=== PATIENT | female | born 1950 | race Caucasian/White ===

== ENCOUNTER 2016-06-11 13:27 | Emergency (ER) | payer MEDICARE, OTHER ==
[2016-06-11 13:33] VITALS: RESP 18
--- NOTE | 2016-06-11 13:59 | ED ---
Fall HPI - General Chief Complaint: Fall Stated Complaint: Fall Time Seen by Provider: 06/11/16 13:39 Source: patient Mode of arrival: ambulatory - History of Present Illness Initial Comments: Patient is a 66-year-old female with history of COPD, diabetes, hypertension, Coumadin use, bilateral knee replacement presenting after mechanical fall yesterday. Patient states she tripped and fell on a rug falling to her left wrist and left knee. She denies head injury or loss of consciousness. Patient is coming in today as she has swelling to the left knee and left wrist. Patient has Percocet at home for her pain which she doesn't request anything for pain. Patient denies any headache, dizziness, lightheadedness, chest pain, stress breath, nausea, vomiting, diarrhea, dysuria. - Related Data Home Medications Medication Instructions Recorded Confirmed Albuterol Inhaler [Ventolin Hfa 2 puff INHALATION QID PRN 08/21/13 01/25/16 Inhaler] Budesonide/Formoterol Fumarate 2 puff INHALATION RT-BID 08/21/13 01/25/16 [Symbicort 160-4.5 Mcg Inhaler] Levothyroxine Sodium [Synthroid] 75 mcg PO DAILY 08/21/13 01/25/16 Losartan Potassium [Cozaar] 100 mg PO DAILY 08/21/13 01/25/16 Methocarbamol [Robaxin-750] 1,500 mg PO QID PRN 08/21/13 01/25/16 Montelukast [Singulair] 10 mg PO HS 08/21/13 01/25/16 Simvastatin [Zocor] 40 mg PO HS 08/21/13 01/25/16 hydrOXYzine PAMOATE [Vistaril] 50 mg PO 5XD PRN 08/21/13 01/25/16 lamoTRIgine [LaMICtal] 100 mg PO HS 08/21/13 01/25/16 oxyCODONE-APAP 10-325MG [Percocet 1 tab PO 5XD PRN 08/21/13 01/25/16 10-325 mg] Akne-Mycin 2% Topical Ointment 1 applic TOPICAL BID 01/25/16 01/25/16 Atenolol [Tenormin] 25 mg PO DAILY 01/25/16 01/25/16 Celecoxib [CeleBREX] 200 mg PO DAILY 01/25/16 01/25/16 Citalopram Hydrobromide 40 mg PO DAILY 01/25/16 01/25/16 Eszopiclone [Lunesta] 3 mg PO HS 01/25/16 01/25/16 Fluticasone Propionate [Flonase 2 spray EA NOSTRIL DAILY 01/25/16 01/25/16 Allergy Relief] Insulin Lispro [humaLOG Kwikpen] See Protocol SQ AC-TID 01/25/16 01/25/16 LORazepam [Ativan] 0.5 mg PO BID PRN 01/25/16 01/25/16 Magnesium Oxide [Mag-Ox] 400 mg PO DAILY 01/25/16 01/25/16 [place]-3 Acid Ethyl Esters [Lovaza] 4 gm PO DAILY 01/25/16 01/25/16 Warfarin [Coumadin] 5 mg PO SUSA 01/25/16 01/25/16 Warfarin [Coumadin] 7.5 mg PO MOTUWETHFR 01/25/16 01/25/16 Previous Rx's Medication Instructions Recorded Azithromycin [Zithromax] 500 mg PO DAILY #10 tab 01/29/16 Doxycycline Hyclate [Vibramycin] 100 mg PO BID #20 cap 01/29/16 Mupirocin 2% Oint [Bactroban 2% 1 applic TOPICAL BID #1 tub 01/29/16 Oint] Nitrofurantoin Monohyd/M-Cryst 100 mg PO DAILY #0 01/29/16 [Macrobid] Allergies Allergy/AdvReac Type Severity Reaction Status Date / Time hydrocodone Allergy Itching Verified 06/11/16 13:33 levofloxacin [From Levaquin] Allergy Dyspnea Verified 06/11/16 13:33 lisinopril Allergy Cough Verified 06/11/16 13:33 morphine Allergy Itching Verified 06/11/16 13:33 sulfamethoxazole Allergy Unknown Verified 06/11/16 13:33 [From Bactrim] trimethoprim [From Bactrim] Allergy Unknown Verified 06/11/16 13:33 acetaminophen [From Tylenol] AdvReac Itching Verified 06/11/16 13:33 lactose AdvReac Nausea & Verified 06/11/16 13:33 Vomiting & Diarrhea Review of Systems ROS Statement: Those systems with pertinent positive or pertinent negative responses have been documented in the HPI. Constitutional: No fever and no chills. HENT: No congestion, no rhinorrhea and no sore throat. Eyes: No discharge and no redness. Respiratory: No cough and no shortness of breath. Cardiovascular: No chest pain and no palpitations. Gastrointestinal: No nausea, no vomiting, no abdominal pain and no diarrhea. Genitourinary: No dysuria and no hematuria. Musculoskeletal: No back pain, + swelling and +arthralgias Skin: No pallor and no rash. Neurological: No dizziness and No headaches. ROS Other: All systems not noted in ROS Statement are negative. Past Medical History Past Medical History: COPD, Diabetes Mellitus, Hypertension Additional Past Medical History / Comment(s): Sarcoidosis, back pain History of Any Multi-Drug Resistant Organisms: MRSA Date of last positivie culture/infection: 01/25/16 MDRO Source:: left hand culture Past Surgical History: Adenoidectomy, Cholecystectomy, Hysterectomy, Joint Replacement, Orthopedic Surgery, Tonsillectomy Additional Past Surgical History / Comment(s): cervical laminectomy, bladder suspension, laser eye surgery Past Anesthesia/Blood Transfusion Reactions: Motion Sickness Additional Past Anesthesia/Blood Transfusion Reaction / Comment(s): CLAUSTERPHOBIA Past Psychological History: Bipolar, Depression Additional Psychological History / Comment(s): SPOUSE IN APRIL 2015. PT LIVES ALONE HAD 3 CATS. PT DENIES ANY DEPRESSION CURRENTLY FEELS WELL MAINTAINED ON HER MEDS. NO THOUGHTS OF HARMING SELF-NO HOPELESSNESS. Smoking Status: Never smoker Past Alcohol Use History: None Reported Additional Past Alcohol Use History / Comment(s): She is a lifelong nonsmoker. She denies any medical marijuana, marijuana, street drug or alcohol use. She lives at home independently. She has a cat in the home. She denies any service or recent travel. Past Drug Use History: None Reported - Past Family History Father Additional Family Medical History / Comment(s): ALCOHOLIC AT AGE 87 Mother Family Medical History: Coronary Artery Disease (CAD) Additional Family Medical History / Comment(s): TRIPLE CABG General Exam - General Exam Comments Initial Comments: Constitutional: Patient appears well-developed and well-nourished. No distress. Head: Normocephalic and atraumatic. Eyes: Conjunctivae and EOM are normal. Right eye exhibits no discharge. Left eye exhibits no discharge. No scleral icterus. Neck: Normal range of motion. Neck supple. Cardiovascular: Normal rate and regular rhythm. No murmur heard. Pulmonary/Chest: Effort normal and breath sounds normal. No respiratory distress. No wheezes. Abdominal: Soft. No distension. There is no tenderness. There is no rebound and no guarding. Right shoulder: Nontender, no crepitus, no deformity Left shoulder: Nontender, no crepitus, no deformity Right arm: Nontender, no crepitus, no deformity Left arm: Nontender, no crepitus, no deformity Right hand: Nontender, no crepitus, no deformity, no snuffbox tenderness Left hand: Bruising and tenderness to left distal forearm, no crepitus, no deformity, no snuffbox tenderness Chest: Nontender, no crepitus, no deformity Pelvis: Stable, nontender, no crepitus, no deformity Back: Nontender, no crepitus, no deformity, no step-offs Right leg: Nontender, no crepitus, no deformity, anterior midline scar present Left leg: Diffuse left knee tenderness with swelling and bruising, no crepitus, midline anterior scar present; DP and TP pulses present. Sensation and motor intact. Distal sensation and pulses are present in all 4 extremities. Neurological: Patient alert and oriented to person, place, and time. Skin: Skin is warm and dry. Not diaphoretic. Nursing notes and vitals reviewed. Limitations: no limitations Course Vital Signs 06/11/16 13:30 Temperature 98.2 F Pulse Rate 72 Respiratory 18 Rate Blood Pressure 144/69 O2 Sat by Pulse 97 Oximetry - Reevaluation(s) Reevaluation #1: 06/11/16 15:04 Patient resting currently in bed. Patient relieved that her hardware is intact. Not requesting anything for pain. Medical Decision Making - Medical Decision Making Patient is a 66-year-old female on Coumadin presenting after mechanical fall without head injury or loss of consciousness. Patient has swelling to the left knee and left wrist. X-rays are unremarkable. INR is therapeutic at 2.6. Not requesting anything for pain. Patient has pain medications at home. Prior to discharge, patient was resting comfortably in bed. Course of stay improved. Denies pain. Discussed physical exam and diagnostic tests with patient. Questions answered and patient is agreeable to discharge with close follow up with Primary Care Physician. Instructed to return to Emergency Department if symptoms worsen. - Lab Data Lab Results 06/11/16 Range/Units 13:10 PT 25.4 H (9.0-12.0) sec INR 2.6 (<1.1) Disposition Clinical Impression: Fall, Knee pain, Wrist pain Disposition: HOME SELF-CARE Condition: Good Instructions: Fall Prevention for Older Adults (ED), Hemarthrosis (ED), Wrist Injury (ED), Swollen Knee Joint (ED) Referrals: Mejia Early MD [Primary Care Provider] - 1-2 days
[2016-06-11 14:24] LABS: INR 2.6 (<1.1); Prothrombin Time 25.4 sec (9.0-12.0)
--- NOTE | 2016-06-11 14:42 | XR ---
Left knee HISTORY: Trauma and pain 3 views of the left knee No comparisons Patient is status post left knee arthroplasty. Bone mineralization is mildly reduced. Alignment is ma intained. 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 Difficult to exclude a joint effusion. IMPRESSION: Soft tissue swelling. No acute osseous abnormality. Additional findings above.
--- NOTE | 2016-06-11 14:43 | XR ---
Left wrist HISTORY: Trauma and pain Correlation to left hand third of January 2016 Resorption or postop change suspected of the trapezium as noted on prior exam. Bone mineralization is reduced. No acute fracture or dislocation is evident. Arthropathy changes are noted. IMPRESSION: No acute fracture or dislocation is evident, bone mineralization is reduced.
[2016-06-11 15:26] VITALS: BP 150/79; PULSE 65; TEMP 98.1
== END 2016-06-11 15:27 | disposition home or self-care (01) ==
LOC: EC 13:27
DX: M25.562 Pain in left knee (principal); M25.532 Pain in left wrist; W01.0XXA Fall on same level from slipping, tripping and stumbling without subsequent striking against object, initial encounter; F32.9 Major depressive disorder, single episode, unspecified; J44.9 Chronic obstructive pulmonary disease, unspecified; I10 Essential (primary) hypertension; E11.9 Type 2 diabetes mellitus without complications; D86.9 Sarcoidosis, unspecified; Z79.899 Other long term (current) drug therapy; Z79.51 Long term (current) use of inhaled steroids; Z79.4 Long term (current) use of insulin; Z79.01 Long term (current) use of anticoagulants; Z88.1 Allergy status to other antibiotic agents; Z88.5 Allergy status to narcotic agent; Z88.2 Allergy status to sulfonamides; Z88.8 Allergy status to other drugs, medicaments and biological substances; Z86.14 Personal history of Methicillin resistant Staphylococcus aureus infection; Z96.653 Presence of artificial knee joint, bilateral
CPT/HCPCS: 36415; 85610; 99284

== ENCOUNTER → 2016-06-21 | Outpatient (CLI) | payer MEDICARE, OTHER ==
--- NOTE | 2016-06-21 12:44 | US ---
EXAMINATION TYPE: US venous doppler duplex LE LT DATE OF EXAM: 06/21/2016 12:31 PM COMPARISON: NONE CLINICAL HISTORY: M79.89 Edema left lower extremity. Pain and swelling with h/o DVT, on thinners SIDE PERFORMED: Left Grayscale, color Doppler, spectral Doppler imaging performed of the deep veins of the left lower extr emity. The left common femoral, superficial femoral, popliteal veins all compress normally and show n o abnormal luminal echoes. Venous waveforms are within normal limits. Left Leg: Appears negative for DVT, tech results relayed to Elizabeth at office @1232 IMPRESSION: No evident deep venous thrombosis within the deep veins of the left lower extremity as d escribed
== END ==
LOC: RADUSWWP 12:08
PROVIDERS: ATTEND Family Medicine
DX: M79.89 Other specified soft tissue disorders (principal)

== ENCOUNTER → 2016-06-22 | Outpatient (CLI) | payer MEDICARE, OTHER ==
--- NOTE | 2016-06-22 16:32 | BD ---
EXAMINATION TYPE: MG DEXA axial skeleton. DATE OF EXAM: 06/22/2016 10:36 AM COMPARISON: NONE CLINICAL HISTORY: 66-year-old female osteopenia Height: 63 Weight: 216.7 FRAX RISK QUESTIONS: Alcohol (3 or more units per day): no Family History (Parent hip fracture): no Glucocorticoids (More than 3mos): no (Ex: prednisone, prednisolone, methylprednisolone, dexamethasone, and hydrocortisone). History of Fracture in Adulthood: yes Secondary Osteoporosis: 1. Type 1 Diabetes: no 2. Hyperthyroidism: no 3. Menopause before 45: yes 4. Malnutrition: no 5. Chronic liver disease: no Rheumatoid Arthritis: no Current Tobacco Use: no RISK FACTORS HISTORY OF: Hip Fracture (Right/Left): no Spine Fracture: no History of Wrist Fracture: no Surgery to Spine/Hip(right/left)/Wrist (right/left): c-spine Family History of Osteoporosis: yes Active: no Diet low in dairy products/other sources of calcium: no Postmenopausal woman: yes -hysterectomy age 26 Lost more than 2 inches in height since high school: yes Frequent falls: no Adrenal Insufficiency: no MEDICATIONS: Thyroid Medications: synthroid How Lon-20 years Additional History: pt takes many medications EXAM MEASUREMENTS: Bone mineral densitometry was performed using the Digital H2O System. Bone mineral density as measured about the Lumbar spine is: ----- L1-L4(G/cm2): 1.303 T Score Values are as follows: ----- L2: 0.9 ----- L3: 1.5 ----- L4: 0.9 ----- L1-L4: 1.0 Bone mineral density baseline Bone mineral density about the R hip (g/cm2): 0.756 Bone mineral density about the L hip (g/cm2): 0.825 T Score values are as follows: -----R Neck: -2.0 -----L Neck: -1.5 -----R Intertrochanter: -0.5 -----L Intertrochanter: -0.1 Bone mineral density baseline IMPRESSION: Osteopenia as indicated by T score values in both hips. There is slightly increased risk for fracture and therapy can be considered. Rescreen in 2-5 years. NOTE: T-SCORE=SD OF THE YOUNG ADULT MEAN.
== END | disposition home or self-care (01) ==
LOC: RADBDWWP 10:01
PROVIDERS: ATTEND Family Medicine
DX: M85.852 Other specified disorders of bone density and structure, left thigh (principal); M85.851 Other specified disorders of bone density and structure, right thigh
CPT/HCPCS: 77080

== ENCOUNTER 2016-07-26 15:17 | Emergency (ER) | payer MEDICARE, OTHER ==
[2016-07-26 15:27] VITALS: BP 151/83; PULSE 67; RESP 18; TEMP 98
--- NOTE | 2016-07-26 15:28 | ED ---
ENT HPI - General Stated complaint: Ear Pain Time Seen by Provider: 07/26/16 15:22 Source: patient, RN notes reviewed Mode of arrival: ambulatory Limitations: no limitations - History of Present Illness Initial comments: 66-year-old female presents emergency Department chief complaint right ear pain. Patient states she has on-and-off ear problems ever since she has had This year. Patient states 6 weeks ago she had a rupture of her right TM. Patient states that over the last 24 hours she's had increased pain again. Patient has fever or chills no drainage. Patient has a pain around her ear. Patient has a headache or dizziness. Patient states she has ALLERGY to Levaquin. Patient denies any symptoms at this time. - Related Data Home Medications Medication Instructions Recorded Confirmed Albuterol Inhaler [Ventolin Hfa 2 puff INHALATION QID PRN 08/21/13 01/25/16 Inhaler] Budesonide/Formoterol Fumarate 2 puff INHALATION RT-BID 08/21/13 01/25/16 [Symbicort 160-4.5 Mcg Inhaler] Levothyroxine Sodium [Synthroid] 75 mcg PO DAILY 08/21/13 01/25/16 Losartan Potassium [Cozaar] 100 mg PO DAILY 08/21/13 01/25/16 Methocarbamol [Robaxin-750] 1,500 mg PO QID PRN 08/21/13 01/25/16 Montelukast [Singulair] 10 mg PO HS 08/21/13 01/25/16 Simvastatin [Zocor] 40 mg PO HS 08/21/13 01/25/16 hydrOXYzine PAMOATE [Vistaril] 50 mg PO 5XD PRN 08/21/13 01/25/16 lamoTRIgine [LaMICtal] 100 mg PO HS 08/21/13 01/25/16 oxyCODONE-APAP 10-325MG [Percocet 1 tab PO 5XD PRN 08/21/13 01/25/16 10-325 mg] Akne-Mycin 2% Topical Ointment 1 applic TOPICAL BID 01/25/16 01/25/16 Atenolol [Tenormin] 25 mg PO DAILY 01/25/16 01/25/16 Celecoxib [CeleBREX] 200 mg PO DAILY 01/25/16 01/25/16 Citalopram Hydrobromide 40 mg PO DAILY 01/25/16 01/25/16 Eszopiclone [Lunesta] 3 mg PO HS 01/25/16 01/25/16 Fluticasone Propionate [Flonase 2 spray EA NOSTRIL DAILY 01/25/16 01/25/16 Allergy Relief] Insulin Lispro [humaLOG Kwikpen] See Protocol SQ AC-TID 01/25/16 01/25/16 LORazepam [Ativan] 0.5 mg PO BID PRN 01/25/16 01/25/16 Magnesium Oxide [Mag-Ox] 400 mg PO DAILY 01/25/16 01/25/16 [place]-3 Acid Ethyl Esters [Lovaza] 4 gm PO DAILY 01/25/16 01/25/16 Warfarin [Coumadin] 5 mg PO SUSA 01/25/16 01/25/16 Warfarin [Coumadin] 7.5 mg PO MOTUWETHFR 01/25/16 01/25/16 Previous Rx's Medication Instructions Recorded Azithromycin [Zithromax] 500 mg PO DAILY #10 tab 01/29/16 Doxycycline Hyclate [Vibramycin] 100 mg PO BID #20 cap 01/29/16 Mupirocin 2% Oint [Bactroban 2% 1 applic TOPICAL BID #1 tub 01/29/16 Oint] Nitrofurantoin Monohyd/M-Cryst 100 mg PO DAILY #0 01/29/16 [Macrobid] Amoxicillin/Potassium Clav 1 tab PO Q12HR #20 tab 07/26/16 [Augmentin 875-125 Tablet] Allergies Allergy/AdvReac Type Severity Reaction Status Date / Time hydrocodone Allergy Itching Verified 07/26/16 15:28 levofloxacin [From Levaquin] Allergy Dyspnea Verified 07/26/16 15:28 lisinopril Allergy Cough Verified 07/26/16 15:28 morphine Allergy Itching Verified 07/26/16 15:28 sulfamethoxazole Allergy Unknown Verified 07/26/16 15:28 [From Bactrim] trimethoprim [From Bactrim] Allergy Unknown Verified 07/26/16 15:28 acetaminophen [From Tylenol] AdvReac Itching Verified 07/26/16 15:28 lactose AdvReac Nausea & Verified 07/26/16 15:28 Vomiting & Diarrhea Review of Systems ROS Statement: Those systems with pertinent positive or pertinent negative responses have been documented in the HPI. ROS Other: All systems not noted in ROS Statement are negative. Past Medical History Past Medical History: COPD, Diabetes Mellitus, Hypertension Additional Past Medical History / Comment(s): Sarcoidosis, back pain History of Any Multi-Drug Resistant Organisms: MRSA Date of last positivie culture/infection: 01/25/16 MDRO Source:: left hand culture Past Surgical History: Adenoidectomy, Cholecystectomy, Hysterectomy, Joint Replacement, Orthopedic Surgery, Tonsillectomy Additional Past Surgical History / Comment(s): cervical laminectomy, bladder suspension, laser eye surgery Past Anesthesia/Blood Transfusion Reactions: Motion Sickness Additional Past Anesthesia/Blood Transfusion Reaction / Comment(s): CLAUSTERPHOBIA Past Psychological History: Bipolar, Depression Additional Psychological History / Comment(s): SPOUSE IN APRIL 2015. PT LIVES ALONE HAD 3 CATS. PT DENIES ANY DEPRESSION CURRENTLY FEELS WELL MAINTAINED ON HER MEDS. NO THOUGHTS OF HARMING SELF-NO HOPELESSNESS. Smoking Status: Never smoker Past Alcohol Use History: None Reported Additional Past Alcohol Use History / Comment(s): She is a lifelong nonsmoker. She denies any medical marijuana, marijuana, street drug or alcohol use. She lives at home independently. She has a cat in the home. She denies any service or recent travel. Past Drug Use History: None Reported - Past Family History Father Additional Family Medical History / Comment(s): ALCOHOLIC AT AGE 87 Mother Family Medical History: Coronary Artery Disease (CAD) Additional Family Medical History / Comment(s): TRIPLE CABG General Exam General appearance: alert, in no apparent distress Head exam: Present: atraumatic, normocephalic, normal inspection Eye exam: Present: normal appearance, PERRL, EOMI. Absent: scleral icterus, conjunctival injection, periorbital swelling ENT exam: Present: normal oropharynx, mucous membranes moist, normal external ear exam (No drainage), other (No mastoid tenderness). Absent: TM's normal bilaterally (Right TM erythematous) Neck exam: Present: normal inspection, full ROM. Absent: tenderness, meningismus, lymphadenopathy Respiratory exam: Present: normal lung sounds bilaterally. Absent: respiratory distress, wheezes, rales, rhonchi, stridor Cardiovascular Exam: Present: regular rate, normal rhythm, normal heart sounds. Absent: systolic murmur, diastolic murmur, rubs, gallop, clicks Course Vital Signs 07/26/16 15:25 Temperature 98.0 F Pulse Rate 67 Respiratory 18 Rate Blood Pressure 151/83 O2 Sat by Pulse 96 Oximetry Medical Decision Making - Medical Decision Making 66-year-old female presented for right ear pain. Patient has otitis media. Patient placed on Augmentin. Patient has no mastoid tenderness. Patient has no purulent drainage from the canal. Patient will follow-up with primary care physician. Disposition Clinical Impression: Otitis media Disposition: HOME SELF-CARE Condition: Stable Instructions: Otitis Media (ED) Additional Instructions: Please return to the Emergency Department if symptoms worsen or any other concerns. Prescriptions: Amoxicillin/Potassium Clav [Augmentin 875-125 Tablet] 1 tab PO Q12HR #20 tab Referrals: Mejia Early MD [Primary Care Provider] - 1-2 days Time of Disposition: 15:28
== END 2016-07-26 15:40 | disposition home or self-care (01) ==
LOC: EC 15:17
DX: H66.91 Otitis media, unspecified, right ear (principal); J44.9 Chronic obstructive pulmonary disease, unspecified; I10 Essential (primary) hypertension; D86.9 Sarcoidosis, unspecified; F32.9 Major depressive disorder, single episode, unspecified; Z79.01 Long term (current) use of anticoagulants; E11.9 Type 2 diabetes mellitus without complications; Z86.14 Personal history of Methicillin resistant Staphylococcus aureus infection; Z79.51 Long term (current) use of inhaled steroids; Z79.4 Long term (current) use of insulin; Z88.1 Allergy status to other antibiotic agents; Z88.8 Allergy status to other drugs, medicaments and biological substances; Z88.5 Allergy status to narcotic agent; Z88.2 Allergy status to sulfonamides
CPT/HCPCS: 99282

== ENCOUNTER 2016-12-31 13:57 | Emergency (ER) | payer MEDICARE, OTHER ==
[2016-12-31 14:00] VITALS: BP 134/74; PULSE 90; RESP 20; TEMP 98.4
[2016-12-31] MEDS ORDERED: HYDROmorphone 1 MG/ML 1 ML SYRINGE IM STA ×2 (14:26→15:24)
--- NOTE | 2016-12-31 14:33 | ED ---
General Adult HPI - General Chief complaint: Back Pain/Injury Stated complaint: Back Pain Time Seen by Provider: 12/31/16 14:09 Source: patient, RN notes reviewed Mode of arrival: wheelchair Limitations: no limitations - History of Present Illness Initial comments: Chief complaint history of present illness a 66-year-old female with a complaint of discomfort radiates from the left lumbar to the right lumbar and down the right leg. She has a history of sciatica in the past. She reports she 's had steroid shots in the past as well told that her disks have been deteriorating for years. Patient reports that she was playing with her granddaughter may have strained it several days ago. No difficulty urinating or bowel movements. - Related Data Home Medications Medication Instructions Recorded Confirmed Albuterol Inhaler [Ventolin Hfa 2 puff INHALATION RT-QID PRN 08/21/13 12/31/16 Inhaler] Budesonide/Formoterol Fumarate 2 puff INHALATION RT-BID 08/21/13 12/31/16 [Symbicort 160-4.5 Mcg Inhaler] Levothyroxine Sodium [Synthroid] 75 mcg PO DAILY 08/21/13 12/31/16 Losartan Potassium [Cozaar] 100 mg PO DAILY 08/21/13 12/31/16 Methocarbamol [Robaxin-750] 1,500 mg PO QID PRN 08/21/13 12/31/16 Montelukast [Singulair] 10 mg PO HS 08/21/13 12/31/16 Simvastatin [Zocor] 40 mg PO HS 08/21/13 12/31/16 hydrOXYzine PAMOATE [Vistaril] 50 mg PO 5XD PRN 08/21/13 12/31/16 lamoTRIgine [LaMICtal] 100 mg PO QAM 08/21/13 12/31/16 Atenolol [Tenormin] 25 mg PO DAILY 01/25/16 12/31/16 Celecoxib [CeleBREX] 200 mg PO DAILY 01/25/16 12/31/16 Citalopram Hydrobromide 40 mg PO DAILY 01/25/16 12/31/16 [Citalopram HBr] Fluticasone Propionate [Flonase 2 spray EA NOSTRIL DAILY PRN 01/25/16 12/31/16 Allergy Relief] Insulin Lispro [humaLOG Kwikpen] See Protocol SQ AC-TID 01/25/16 12/31/16 Magnesium Oxide [Mag-Ox] 400 mg PO DAILY 01/25/16 12/31/16 [place]-3 Acid Ethyl Esters [Lovaza] 4 gm PO DAILY 01/25/16 12/31/16 Warfarin [Coumadin] 5 mg PO SUFRSA 01/25/16 12/31/16 Warfarin [Coumadin] 7.5 mg PO MOTUWETH 01/25/16 12/31/16 oxyCODONE-APAP 7.5-325MG [Percocet 1 tab PO 5XD PRN 12/31/16 12/31/16 7.5-325 mg] Previous Rx's Medication Instructions Recorded Diazepam [Valium] 5 mg PO BID #6 tab 12/31/16 methylPREDNISolone Dose Pack 4 mg PO DIRECTED #21 package 12/31/16 [Medrol Dose Pack] Allergies Allergy/AdvReac Type Severity Reaction Status Date / Time acetaminophen [From Tylenol] Allergy Itching Verified 12/31/16 14:44 hydrocodone Allergy Itching Verified 12/31/16 14:44 levofloxacin [From Levaquin] Allergy Dyspnea Verified 12/31/16 14:37 morphine Allergy Itching Verified 12/31/16 14:37 sulfamethoxazole Allergy Dyspnea Verified 12/31/16 14:37 [From Bactrim] trimethoprim [From Bactrim] Allergy Dyspnea Verified 12/31/16 14:37 lactose AdvReac Nausea & Verified 12/31/16 14:37 Vomiting & Diarrhea lisinopril AdvReac Cough Verified 12/31/16 14:37 Review of Systems ROS Statement: Those systems with pertinent positive or pertinent negative responses have been documented in the HPI. Review of systems. No visual acuity changes no headache no chest pain no shortness of breath no nausea no vomiting. No difficulty having bowel movements or urinating. Pain radiates down the right sciatic region and some paresthesias to the right anterior thigh. All systems reviewed. Patient does not have foot drop. Past medical problems significant for COPD, nonsmoker. Patient takes insulin on occasion depending upon her Accu-Cheks at meals. History of hypertension, sarcoidosis and chronic back pain. The patient's surgeries include adenoidectomy, tonsillectomy, cholecystectomy, hysterectomy, bilateral knee replacements, and cervical laminectomy. The patient's family history no cancers. Patient has ALLERGIES to hydrocodone and Tylenol but yet she can take Percocet she takes it with Vistaril. She reports an ALLERGY to Levaquin lisinopril morphine which causes nausea vomiting but she can take Dilaudid. She reports that she can't take sulfa drugs also lactose intolerant. Patient's nonsmoker. ROS Other: All systems not noted in ROS Statement are negative. Past Medical History Past Medical History: COPD, Diabetes Mellitus, Hypertension Additional Past Medical History / Comment(s): Sarcoidosis, back pain History of Any Multi-Drug Resistant Organisms: MRSA Date of last positivie culture/infection: 01/25/16 MDRO Source:: left hand culture Past Surgical History: Adenoidectomy, Cholecystectomy, Hysterectomy, Joint Replacement, Orthopedic Surgery, Tonsillectomy Additional Past Surgical History / Comment(s): cervical laminectomy, bladder suspension, laser eye surgery Past Anesthesia/Blood Transfusion Reactions: Motion Sickness Additional Past Anesthesia/Blood Transfusion Reaction / Comment(s): CLAUSTERPHOBIA Past Psychological History: Bipolar, Depression Smoking Status: Never smoker Past Alcohol Use History: None Reported Past Drug Use History: None Reported - Past Family History Father Additional Family Medical History / Comment(s): ALCOHOLIC AT AGE 87 Mother Family Medical History: Coronary Artery Disease (CAD) Additional Family Medical History / Comment(s): TRIPLE CABG General Exam - General Exam Comments Initial Comments: General: The patient is awake and alert, complaining of pain from the right paralumbar region down the right buttock into the right leg to just approximate the right knee. No foot drop. Vital signs are temperature 98.4 pulse 90 respiratory rate 20 pulse ox 90% room air blood pressure 134/64 Eye: Pupils are equal, round and reactive to light, extra-ocular movements are intact ; there is normal conjunctiva bilaterally. No signs of icterus. Ears, nose, mouth and throat: There are moist mucous membranes and no oral lesions. Neck: The neck is supple, there is no tenderness, history of chronic neck pain but nothing at this time. Cardiovascular: There is a regular rate and rhythm. Systolic murmur. Patient states she is aware of this.. Respiratory: Lungs are clear to auscultation, respirations are non-labored, breath sounds are equal. No wheezes, stridor, rales, or rhonchi. Gastrointestinal: Soft, non-distended, non-tender abdomen without masses or organomegaly noted. There is no rebound or guarding present. No CVA tenderness. Bowel sounds are unremarkable. Back: Right paralumbar pain that radiates down the buttock on the right side into the right thigh. No foot drop. Sciatica. Neurovascular status to the feet intact. Musculoskeletal: Normal ROM, no tenderness, There is no pedal edema. There is no calf tenderness or swelling. Numbness to the anterior right thigh region. Pulses equal bilaterally. Neurological: Sciatica right leg to right anterior thigh. Skin: Skin is warm and dry and no rashes or lesions are noted. Limitations: no limitations Course Vital Signs 12/31/16 13:58 Temperature 98.4 F Pulse Rate 90 Respiratory 20 Rate Blood Pressure 134/74 O2 Sat by Pulse 98 Oximetry Medical Decision Making - Medical Decision Making Medical decision-making. The patient had x-rays of the lumbosacral spine were done and reviewed by radiologist; his impression is level scoliosis Center L3. Multilevel spondylosis is present. Surgical clips are present on the right upper quadrant. Bone mineralization is reduced. No evidence of spondylolysis or spondylolisthesis. Loss of disc height present at the intervertebral levels. Atherosclerotic vascular calcifications present within the aorta. Sclerosis is present in the posterior elements of the lumbar spine. Impression degenerative disc disease, scoliosis, osteopenia and facet arthropathy. As read by Dr. Irvin The patient received one half milligram of Dilaudid IM. She states that she can take this but she cannot take morphine. The plan the patient will be advised to continue with her home pain medications which are Percocet. She will also be put on a muscle relaxant for 2 days, 95 mg twice a day and a Medrol Dosepak. She was advised to keep her sugars controlled and as needed increase her insulin on a sliding scale which she understands. Advised follow- up with her family physician and orthopedic surgeon. Patient and I discussed the possible need for an MRI for evaluation disc disease . Disposition Clinical Impression: Right-sided low back pain with sciatica, Degenerative disc disease, lumbar Disposition: HOME SELF-CARE Condition: Fair Instructions: Acute Low Back Pain (ED), Sciatica (ED), Lumbar Radiculopathy (ED ) Additional Instructions: Follow-up with the family physician. Follow-up with year pain management doctor he does not have one as for referral as needed. Follow-up with the orthopedic surgeon. Valium 5 mg twice a day for 2 days. Continue with here pain medication. Also Medrol Dosepak as directed. Control your sugar by using her sliding scale. Prescriptions: Diazepam [Valium] 5 mg PO BID #6 tab methylPREDNISolone Dose Pack [Medrol Dose Pack] 4 mg PO DIRECTED #21 package Referrals: Mejia Early MD [Primary Care Provider] - 1-2 days Time of Disposition: 15:20
--- NOTE | 2016-12-31 15:04 | XR ---
Lumbosacral spine HISTORY: Right-sided pain, low back pain 5 views of the lumbosacral spine are submitted. No comparisons There is a levoscoliosis centered at L3. Multilevel spondylosis is present. Surgical clips are presen t in the right upper quadrant. Bone mineralization is reduced. No evident spondylolysis or spondyloli sthesis. Loss of disc height present at the intervertebral levels. Atherosclerotic vascular calcifica tions present within the aorta. Sclerosis is present in the posterior elements of the lumbar spine. IMPRESSION: Degenerative disc disease, scoliosis, osteopenia and facet arthropathy.
== END 2016-12-31 15:34 | disposition home or self-care (01) ==
LOC: EC 13:57
DX: M51.16 Intervertebral disc disorders with radiculopathy, lumbar region (principal); J44.9 Chronic obstructive pulmonary disease, unspecified; E11.9 Type 2 diabetes mellitus without complications; I10 Essential (primary) hypertension; F31.9 Bipolar disorder, unspecified; Z88.1 Allergy status to other antibiotic agents; Z88.2 Allergy status to sulfonamides; Z88.5 Allergy status to narcotic agent; Z88.8 Allergy status to other drugs, medicaments and biological substances; Z91.011 Allergy to milk products; Z79.01 Long term (current) use of anticoagulants; Z79.4 Long term (current) use of insulin; Z79.51 Long term (current) use of inhaled steroids; Z79.899 Other long term (current) drug therapy
CPT/HCPCS: 99283; 96372 ×2; 72110; J1170

== ENCOUNTER 2017-01-22 10:45 | Emergency (ER) | payer MEDICARE, OTHER ==
[2017-01-22] MEDS ORDERED: HYDROmorphone 1 MG/ML 1 ML SYRINGE IM STA (12:43)
--- NOTE | 2017-01-22 12:47 | ED ---
General Adult HPI - General Chief complaint: Back Pain/Injury Stated complaint: BACK PAIN Time Seen by Provider: 01/22/17 12:33 Source: patient, RN notes reviewed, old records reviewed Mode of arrival: wheelchair Limitations: no limitations - History of Present Illness Initial comments: Chief complaint history of present illness a 66-year-old female with chronic low back pain. Patient reports again worse lately. Patient is requesting a pain shot. She is currently taking Percocet states she has not run out of her prescription. She does have an appointment to follow-up with Dr. Caballero, neurologist. Denies any new injuries slip and twist turning or lifting. - Related Data Home Medications Medication Instructions Recorded Confirmed Budesonide/Formoterol Fumarate 2 puff INHALATION RT-BID 08/21/13 01/22/17 [Symbicort 160-4.5 Mcg Inhaler] Levothyroxine Sodium [Synthroid] 75 mcg PO DAILY 08/21/13 01/22/17 Losartan Potassium [Cozaar] 100 mg PO DAILY 08/21/13 01/22/17 Montelukast [Singulair] 10 mg PO HS 08/21/13 01/22/17 Simvastatin [Zocor] 40 mg PO HS 08/21/13 01/22/17 hydrOXYzine PAMOATE [Vistaril] 50 mg PO 5XD PRN 08/21/13 01/22/17 lamoTRIgine [LaMICtal] 100 mg PO QAM 08/21/13 01/22/17 Atenolol [Tenormin] 25 mg PO DAILY 01/25/16 01/22/17 Celecoxib [CeleBREX] 200 mg PO DAILY 01/25/16 01/22/17 Citalopram Hydrobromide 40 mg PO DAILY 01/25/16 01/22/17 [Citalopram HBr] Fluticasone Propionate [Flonase 2 spray EA NOSTRIL DAILY PRN 01/25/16 01/22/17 Allergy Relief] Insulin Lispro [humaLOG Kwikpen] See Protocol SQ AC-TID 01/25/16 01/22/17 Magnesium Oxide [Mag-Ox] 400 mg PO DAILY 01/25/16 01/22/17 [place]-3 Acid Ethyl Esters [Lovaza] 4 gm PO DAILY 01/25/16 01/22/17 Warfarin [Coumadin] 5 mg PO SUFRSA 01/25/16 01/22/17 Warfarin [Coumadin] 7.5 mg PO MOTUWETH 01/25/16 01/22/17 oxyCODONE-APAP 7.5-325MG [Percocet 1 tab PO 5XD PRN 12/31/16 01/22/17 7.5-325 mg] Albuterol Sulfate [Proair Hfa] 2 puff INHALATION RT-QID PRN 01/22/17 01/22/17 Baclofen 10 mg PO TID 01/22/17 01/22/17 Allergies Allergy/AdvReac Type Severity Reaction Status Date / Time acetaminophen [From Tylenol] Allergy Itching Verified 01/22/17 12:16 hydrocodone Allergy Itching Verified 01/22/17 12:16 levofloxacin [From Levaquin] Allergy Dyspnea Verified 01/22/17 12:16 morphine Allergy Itching Verified 01/22/17 12:16 sulfamethoxazole Allergy Dyspnea Verified 01/22/17 12:16 [From Bactrim] trimethoprim [From Bactrim] Allergy Dyspnea Verified 01/22/17 12:16 lactose AdvReac Nausea & Verified 01/22/17 12:16 Vomiting & Diarrhea lisinopril AdvReac Cough Verified 01/22/17 12:16 Review of Systems ROS Statement: Those systems with pertinent positive or pertinent negative responses have been documented in the HPI. Review of systems no headache no shortness of breath no GI/ problems. The back pain is not preventing her from having bowel movements or urinating. No numbness in the saddle area. Pain on the medial aspect of the right leg down to the mid right calf. No other problems this time. All systems were reviewed Past medical problems significant for chronic back pain disc degenerative disease. COPD, insulin-dependent diabetes mellitus, hypertension, sarcoidosis affecting the lung but not currently on any therapy. Patient also has surgery history of tonsils, adenoids, cholecystectomy, total hysterectomy, both knees replaced joints replaced. She's also his laminectomy. Family history no cancers. Patient has ALLERGIES to Tylenol hydrocodone Levaquin morphine sulfa lactose lisinopril. She states she can take Dilaudid. Patient denies smoking denies drinking. ROS Other: All systems not noted in ROS Statement are negative. Past Medical History Past Medical History: COPD, Diabetes Mellitus, Hypertension Additional Past Medical History / Comment(s): Sarcoidosis, back pain History of Any Multi-Drug Resistant Organisms: MRSA Date of last positivie culture/infection: 01/25/16 MDRO Source:: left hand culture Past Surgical History: Adenoidectomy, Cholecystectomy, Hysterectomy, Joint Replacement, Orthopedic Surgery, Tonsillectomy Additional Past Surgical History / Comment(s): cervical laminectomy, bladder suspension, laser eye surgery Past Anesthesia/Blood Transfusion Reactions: Motion Sickness Additional Past Anesthesia/Blood Transfusion Reaction / Comment(s): CLAUSTERPHOBIA Past Psychological History: Bipolar, Depression Smoking Status: Never smoker Past Alcohol Use History: None Reported Past Drug Use History: None Reported - Past Family History Father Additional Family Medical History / Comment(s): ALCOHOLIC AT AGE 87 Mother Family Medical History: Coronary Artery Disease (CAD) Additional Family Medical History / Comment(s): TRIPLE CABG General Exam - General Exam Comments Initial Comments: General: The patient is awake and alert, complaining of pain to the medial aspect of her right down to the mid right calf area. No swelling noted. Chronic back pain. History of degenerative disc disease. Vital signs temperature 99.4 pulse 83 respiratory rate 18 pulse ox 97% room air blood pressure 189/90. Eye: Pupils are equal, , extra-ocular movements are intact; there is normal conjunctiva bilaterally. No signs of icterus. Ears, nose, mouth and throat: There are moist mucous membranes Neck: The neck is supple, chronic neck pain as well. Cardiovascular: There is a regular rate and rhythm. No murmur, rub or gallop is appreciated. Respiratory: Lungs are clear to auscultation, respirations are non-labored, breath sounds are equal. No wheezes, stridor, rales, or rhonchi. Gastrointestinal: Soft, non-distended, non-tender abdomen without masses or organomegaly noted. There is no rebound or guarding present. No CVA tenderness. Bowel sounds are unremarkable. Back: Low back pain. Radiating down right buttock into the medial aspect of the right leg and calf area. Musculoskeletal: Sciatica right side Neurological: Sciatica right side. No other neuro deficits. Skin: Skin is warm and dry and no rashes or lesions are noted. No rashes noted. Shingles discussed. Limitations: no limitations Course Vital Signs 01/22/17 11:48 Temperature 99.4 F Pulse Rate 83 Respiratory 18 Rate Blood Pressure 189/90 O2 Sat by Pulse 97 Oximetry Medical Decision Making - Medical Decision Making The patient requested and received Dilaudid 1 mg IM. Her sons driving her home. She'll be placed on Decadron dose pack. Advised to follow-up with family physician and neurologist. Disposition Clinical Impression: Lumbar radiculopathy, acute Disposition: HOME SELF-CARE Condition: Fair Instructions: Acute Low Back Pain (ED), Lumbar Radiculopathy (ED) Additional Instructions: Continue with pain medications at home. Added Decadron dose pack. Follow-up family physician and your neurologist. Check your glucose levels frequently and just your insulin dose accordingly. Referrals: Mejia Early MD [Primary Care Provider] - 1-2 days Time of Disposition: 12:52
[2017-01-22] MEDS ORDERED: DEXAMETHASONE 4 MG TAB PO STA (12:51)
[2017-01-22 13:27] VITALS: BP 197/90; PULSE 82; RESP 24; TEMP 97.9
== END 2017-01-22 13:22 | disposition home or self-care (01) ==
LOC: EC 10:45
DX: M54.16 Radiculopathy, lumbar region (principal); J44.9 Chronic obstructive pulmonary disease, unspecified; E11.9 Type 2 diabetes mellitus without complications; I10 Essential (primary) hypertension; F31.9 Bipolar disorder, unspecified; Z79.51 Long term (current) use of inhaled steroids; Z79.899 Other long term (current) drug therapy; Z79.01 Long term (current) use of anticoagulants; Z79.4 Long term (current) use of insulin; Z88.2 Allergy status to sulfonamides; Z88.1 Allergy status to other antibiotic agents; Z88.5 Allergy status to narcotic agent; Z91.011 Allergy to milk products; Z88.8 Allergy status to other drugs, medicaments and biological substances; Z88.6 Allergy status to analgesic agent
CPT/HCPCS: 99283 ×2; 96372 ×2; J8540; J1170

== ENCOUNTER → 2018-06-22 | Outpatient (CLI) | payer MEDICARE, OTHER ==
[2018-06-22 13:37] LABS: Basophils # (A) 0.1 k/uL (0-0.2); Basophils % (A) 1 %; Eosinophils # (A) 0.3 k/uL (0-0.7); Eosinophils % (A) 4 %; HCT 41.8 % (34.0-46.0); HGB 13.5 gm/dL (11.4-16.0); Lymphocytes # (A) 1.9 k/uL (1.0-4.8); Lymphocytes % (A) 21 %; MCH 29.2 pg (25.0-35.0); MCHC 32.3 g/dL (31.0-37.0); MCV 90.2 fL (80.0-100.0); Mean Platelet Volume 6.2; Monocytes # (A) 0.5 k/uL (0-1.0); Monocytes % (A) 5 %; Neutrophils % (A) 67 %; Platelet Count 262 k/uL (150-450); RBC 4.63 m/uL (3.80-5.40); RDW 13.9 % (11.5-15.5)
[2018-06-22 13:41] LABS: Appearance,Urine Clear (Clear); Bilirubin,Urine Negative (Negative); Blood,Urine Negative (Negative); Color,Urine Yellow; Glucose,Urine (UA) 3+ (Negative); Ketones,Urine Negative (Negative); Leukocyte Esterase,Urine Small (Negative); Mucus,Urine Many /hpf; Nitrite,Urine Negative (Negative); Protein,Urine 1+ (Negative); Urobilinogen,Urine <2.0 mg/dL (<2.0); WBC,Urine 4 /hpf (0-5)
[2018-06-22 13:45] LABS: Anion Gap 6 mmol/L; Blood Urea Nitrogen 17 mg/dL (7-17); Carbon Dioxide 28 mmol/L (22-30); Chloride 107 mmol/L (98-107); Glucose 147 mg/dL (74-99); Potassium 4.4 mmol/L (3.5-5.1); Sodium 141 mmol/L (137-145)
[2018-06-22 13:47] LABS: INR 2.8 (<1.2); Partial Thromboplastin Time 41.7 sec (22.0-30.0); Prothrombin Time 26.9 sec (9.0-12.0)
[2018-06-22 14:28] LABS: Calcium 9.5 mg/dL (8.4-10.2)
--- NOTE | 2018-06-22 17:07 | XR ---
EXAMINATION TYPE: XR chest 2V DATE OF EXAM: 06/22/2018 COMPARISON: 01/25/2016 HISTORY: Preop testing TECHNIQUE: Frontal and lateral views of the chest are obtained. FINDINGS: There is slight elevated left diaphragm. There is no heart failure nor confluent pneumonic infiltrate. Costophrenic angles are clear. There is no pleural effusion. Bony thorax is intact. IMPRESSION: Mild chronic elevation of the left diaphragm slightly worse than last exam and could rel ate to partial paralysis. Normal heart..
== END | disposition home or self-care (01) ==
LOC: LABPAT 12:47
PROVIDERS: ATTEND Orthopaedic Surgery Orthopaedic Surgery of the Spine
DX: Z01.818 Encounter for other preprocedural examination (principal); Q79.1 Other congenital malformations of diaphragm; S32.019A Unspecified fracture of first lumbar vertebra, initial encounter for closed fracture; Z51.81 Encounter for therapeutic drug level monitoring; Z79.01 Long term (current) use of anticoagulants
CPT/HCPCS: 36415; 71046; 80048; 81001; 85025; 85610; 85730; 93005

== ENCOUNTER 2018-07-11 08:09 | Day surgery (SDC) | payer MEDICARE, OTHER ==
[2018-06-26 09:44] VITALS: BMI 37.2
[~2018-07-11 08:09] MED LIST: LACTATED RINGERS 1,000 ML IV SCH; LIDOCAINE 1% 20 ML VIAL (10MG/ML) FOR IV START INTRADERMA PRN; SODIUM CHLORIDE 0.9% IRRIGATIO 1,000 ML IRRIGATION ONE; ceFAZolin IN SWFI 2 GM/20 ML SYRINGE IVP ONE; fentaNYL (PF) 50 MCG/ML 2 ML AMP IV PRN
[2018-07-11 08:35] VITALS: TEMP 97
[2018-07-11 08:40] LABS: Glucose,Whole Blood 170 mg/dL (75-99)
[2018-07-11] MEDS ORDERED: ONDANSETRON 4 MG/2 ML VIAL IVP ONE ×2 (08:40→11:15)
[2018-07-11] MEDS ORDERED: GLYCOPYRROLATE 0.2 MG/ML 2 ML VIAL ONE (10:05)
[2018-07-11] MEDS ORDERED: NEOSTIGMINE 1 MG/ML 10 ML VIAL ONE (10:05)
[2018-07-11] MEDS ORDERED: MIDAZOLAM 2 MG/2 ML VIAL ONE (10:05)
[2018-07-11] MEDS ORDERED: ROCURONIUM BROMIDE 10 MG/ML 10 ML VIAL IV ONE (10:05)
[2018-07-11] MEDS ORDERED: PROPOFOL 10 MG/ML 20 ML VIAL IV ONE (10:05)
[2018-07-11] MEDS ORDERED: fentaNYL (PF) 50 MCG/ML 2 ML AMP ONE (10:05)
[2018-07-11] MEDS ORDERED: LIDOCAINE 0.5%-EPI 1:200,000 50 ML VIAL SQ ONE (10:08)
[2018-07-11] MEDS ORDERED: IOPAMIDOL M200 10 ML VIAL MISCELLANE ONE (10:08)
[2018-07-11] MEDS ORDERED: LACTATED RINGERS 1,000 ML IV ONE (10:50)
[2018-07-11] MEDS ORDERED: HYDROmorphone 1 MG/ML 1 ML SYRINGE IVP PRN (11:07)
[2018-07-11] MEDS ORDERED: IBUPROFEN 600 MG TAB PO PRN (11:07)
[2018-07-11] MEDS ORDERED: KETOROLAC 30 MG/ML 1 ML VIAL IVP PRN (11:07)
[2018-07-11] MEDS ORDERED: HYDROcodone/APAP 5-325MG 1 EACH TAB PO PRN ×2 (11:07)
[2018-07-11] MEDS ORDERED: oxyCODONE-APAP 10-325MG 1 EACH TAB PO PRN (11:09)
[2018-07-11] MEDS ORDERED: INSULIN LISPRO SQ PRN (11:09)
[2018-07-11] MEDS ORDERED: hydrOXYzine PAMOATE 25 MG CAP PO PRN (11:09)
[2018-07-11] MEDS ORDERED: ALBUTEROL NEBULIZED 2.5 MG/3 ML INHALATION PRN (11:09)
--- NOTE | 2018-07-11 11:15 | P.OP ---
Date of Procedure: 07/11/18 Preoperative Diagnosis: L1 vertebral compression fracture, acute traumatic Postoperative Diagnosis: Same Anesthesia: GETA Pathology: other (L1 vertebral biopsy for pathology sent in formalin) Condition: stable Disposition: PACU Description of Procedure: BRIEF OPERATIVE NOTE Preoperative Diagnosis: Vertebral compression fracture L1, acute traumatic Postoperative Diagnosis: Same Procedure: Kyphoplasty L1 Vertebral body biopsy L1 Use of biplanar fluoroscopic guidance Surgeon: Dr. Zhang Golf Ball Trimmer: Navid BOYLE who is present throughout the entire the case persistence during positioning, dissection, exposure, visualization, and all crucial elements of the case as well as closure. Anesthesia: General anesthesia Estimated blood loss: Less than 10 mL Specimen: Vertebral body biopsy sent to pathology in formalin Complications: None apparent Components implanted: Bone cement approximate 4 and half cc Disposition: To recovery room in good stable condition. OPERATIVE INDICATIONS The patient has been having issues in their back ever since sustaining an injury. She was found have a new injury with an L1 vertebral compression fracture which correlated well with her new symptoms. The patient has been through conservative treatment. She is not having any prolonged benefit despite conservative treatment. They attempted conservative care with bracing however they're not having any benefit despite brace use. They continue to have significant pain and debility due to their fracture. She understands that she also has significant degenerative changes at multiple levels at her lumbar spine which have been ongoing for her. Treatment options for the new compression fracture at L1 would not be addressing the chronic degenerative changes in her lumbar spine. We discussed various treatment options including surgery, and the patient wishes to proceed with surgery We discussed the risk, patient's altern atives and benefits of surgery including but not limited to, risk of bleeding risk of infection, risk of need for further surgery, risk of decreased, loss of motion, loss of function, cement extravasation, nerve damage, paralysis, heart attack, blindness and . OPERATIVE SUMMARY After discussing all the risks, patient alternatives and benefits at length, the patient elected to proceed with surgical intervention, signed informed consent, and presented for their procedure. The patient was seen and examined in the preoperative holding area and the surgical site was marked. The patient was given antibiotics and brought to the operating room. The patient was sedated and intubated by anesthesia in standard fashion. The patient was positioned on to the operating room table in a prone position on the appropriate well-padded and well molded bilateral chest rolls. We were careful to pad any bony prominences and pressure points. We were careful to maintain the patient's cervical spine and good neutral alignment and position throughout. We used 2 C-arm machines to establish biplanar fluoroscopic guidance in AP and lateral positions. We were able to localize the fractures appropriately. The patient was prepped and draped in a normal standard fashion. An appropriate timeout and keystone protocol performed. We were able to proceed with the surgery. The local wound area was infiltrated with local anesthetic. An incision was made over the lateral aspect of the pedicle over the appropriate levels with a small 2 mm stab incision. Intraoperative fluoroscopy was taken which showed a marker at the appropriate level of L1. With the appropriate level positively confirmed, I was able to position a sharp trocar over the lateral aspect of the pedicle. As able to advance the trocar into the pedicle and into the posterior aspect of vertebral body being careful to avoid penetration cephalad caudad or medially. The trocar was placed appropriately into the posterior aspect of vertebral body at the appropriate levels. This was confirmed with C-arm guidance. With the trocar intact I was then able to take a bone biopsy with a biopsy punch or a bony drill. The biopsy specimen was passed off to be sent to pathology in formalin. I was then able to place the kyphoplasty balloon within the vertebral body of L1. The position was checked on C-arm. I was able to inflate the balloon under low pressure and visualization with C-arm. The balloon was well enclosed within the vertebral body of L1. The cement was prepared. With the cement at appropriate working condition the balloons were deflated and removed. I was able to place bony cement with trocar with the cement delivery device under low pressure. It had good fill within the vertebral body. There is no evidence of any extravasation of the cement posteriorly toward the canal. The cement was well contained at the appropriate levels. The cement was allowed to cure appropriately. The trochars removed and final images were taken on C-arm. This showed the cement at the appropriate level of L1. We were able to proceed with closure. The wound was cleaned and dried and dressed with the appropriate dressing. The drapes were broken down. The patient was gently rolled back onto their hospital bed being careful to maintain their cervical spine and good neutral alignment and position. They were woken up by anesthesia, extubated, and brought to the recovery room in good stable condition. The patient will be admitted to the hospital for observation and for appropriate postoperative care, medical management and monitoring. We will continue to follow them closely about the postoperative course.
[2018-07-11] MEDS ORDERED: diphenhydrAMINE 50 MG/ML 1 ML VIAL IVP ONE (11:30)
[2018-07-11 11:33] VITALS: RESP 16
[2018-07-11] MEDS: HYDROmorphone 1 MG/ML 1 ML SYRINGE IVP ONE ×2 (11:46→11:57)
--- NOTE | 2018-07-11 11:47 | FL ---
Fluoroscopy History: kyphoplasty-L1 Kyphoplasty-L1 done with . Fl time 47 seconds
[2018-07-11] MEDS ORDERED: CEPHALEXIN 500 MG CAP PO SCH (12:00)
[2018-07-11 12:14] LABS: Glucose,Whole Blood 163 mg/dL (75-99)
[2018-07-11 12:35] VITALS: BP 163/85; PULSE 68
[2018-07-11] MEDS ORDERED: BACLOFEN 10 MG TAB PO SCH (16:00)
[2018-07-11] MEDS ORDERED: ceFAZolin IN SWFI 2 GM/20 ML SYRINGE IVP SCH (16:00)
[2018-07-11] MEDS ORDERED: SYMBICORT 80-4.5 MCG INHALER INHALATION SCH (20:00)
[2018-07-11] MEDS ORDERED: INSULIN NPH 300 UNIT/3 ML VIAL SQ SCH (21:00)
[2018-07-11] MEDS ORDERED: NON-FORMULARY DRUG (Simvastatin 40 MG) PO SCH (21:00)
[2018-07-11] MEDS ORDERED: GABAPENTIN 300 MG CAP PO SCH (21:00)
[2018-07-11] MEDS ORDERED: MELATONIN 30 MG PO SCH (21:00)
[2018-07-12] MEDS ORDERED: WARFARIN 5 MG TAB PO SCH (00:01)
[2018-07-12] MEDS ORDERED: NON-FORMULARY DRUG (Turmeric Root Extract [Turmeric] 500 MG) PO SCH (09:00)
[2018-07-12] MEDS ORDERED: ZINC SULFATE 220 MG CAP PO SCH (09:00)
[2018-07-12] MEDS ORDERED: ATENOLOL 25 MG TAB PO SCH (09:00)
[2018-07-12] MEDS ORDERED: MELOXICAM 7.5 MG TAB PO SCH (09:00)
[2018-07-12] MEDS ORDERED: [UNRECOGNIZED DRUG - REMARK] EA NOSTRIL SCH (09:00)
[2018-07-12] MEDS ORDERED: LEVOTHYROXINE 75 MCG TAB PO SCH (09:00)
[2018-07-12] MEDS ORDERED: CALCIUM CARBONATE 500 MG CHEWABLE PO SCH (09:00)
[2018-07-12] MEDS ORDERED: CYANOCOBALAMIN 500 MCG TAB PO SCH (09:00)
[2018-07-12] MEDS ORDERED: CITALOPRAM HYDROBROMIDE 20 MG TAB PO SCH (09:00)
[2018-07-12] MEDS ORDERED: CHOLECALCIFEROL 1,000 UNIT TAB PO SCH (09:00)
[2018-07-12] MEDS ORDERED: lamoTRIgine 100 MG TAB PO SCH (09:00)
== END 2018-07-11 12:50 | disposition home or self-care (01) ==
LOC: OR 08:09
PROVIDERS: ATTEND Orthopaedic Surgery Orthopaedic Surgery of the Spine
DX: S32.010A Wedge compression fracture of first lumbar vertebra, initial encounter for closed fracture (principal); M47.817 Spondylosis without myelopathy or radiculopathy, lumbosacral region; M48.062 Spinal stenosis, lumbar region with neurogenic claudication; M41.26 Other idiopathic scoliosis, lumbar region; E78.5 Hyperlipidemia, unspecified; I10 Essential (primary) hypertension; E03.9 Hypothyroidism, unspecified; E11.9 Type 2 diabetes mellitus without complications; J44.9 Chronic obstructive pulmonary disease, unspecified; M19.90 Unspecified osteoarthritis, unspecified site; I48.2 Chronic atrial fibrillation; E78.00 Pure hypercholesterolemia, unspecified; D68.59 Other primary thrombophilia; F31.9 Bipolar disorder, unspecified; D86.9 Sarcoidosis, unspecified; Z86.718 Personal history of other venous thrombosis and embolism; Z79.01 Long term (current) use of anticoagulants; Z79.890 Hormone replacement therapy; Z79.4 Long term (current) use of insulin; Z79.891 Long term (current) use of opiate analgesic; Z79.51 Long term (current) use of inhaled steroids; Z79.899 Other long term (current) drug therapy; Z88.6 Allergy status to analgesic agent; Z88.1 Allergy status to other antibiotic agents; Z88.5 Allergy status to narcotic agent; Z88.8 Allergy status to other drugs, medicaments and biological substances
CPT/HCPCS: 88307; 88311; 72100; 22514; C1713; J2250; J1200; J2710; J2405; J3010; J1170; J2704; J0690; Q9966

== ENCOUNTER 2018-09-07 08:43 | Observation (INO) | payer MEDICARE ==
[2018-09-07] MEDS ORDERED: NITROGLYCERIN OINT 1 INCH/GM PACKET TOPICAL STA (09:15)
[2018-09-07] MEDS ORDERED: HEPARIN SODIUM,PORCINE 5,000 UNIT/ML 1 ML VIAL IV PRN (09:16)
[2018-09-07] MEDS ORDERED: HEPARIN SODIUM,PORCINE 5,000 UNIT/ML 1 ML VIAL IV ONE ×2 (09:16→13:50)
--- NOTE | 2018-09-07 09:21 | ED ---
Chest Pain HPI - General Chief Complaint: Chest Pain Stated Complaint: Chest pain Time Seen by Provider: 09/07/18 08:55 Source: patient Mode of arrival: ambulatory Limitations: no limitations - History of Present Illness Initial Comments: Is a 68-year-old female who presents with complaints of the onset at 6:30 this morning of retrosternal chest pain and pressure also described as tightness going to her jaw was 8/10 severity she states that she was not feeling well last night. He does state that she is under a lot of stress at home she denies any f laura chills nausea vomiting sweats she states that after the treatment given thus far as the pain went from 8/10 down to 6-7/10. There is some reproducibility to the pain but it is not totally reproducible. She has had catheterization in the past last one about 6 years ago which apparently was within normal limits. MD Complaint: chest pain - Related Data Home Medications Medication Instructions Recorded Confirmed Levothyroxine Sodium [Synthroid] 75 mcg PO DAILY 08/21/13 09/07/18 Simvastatin [Zocor] 40 mg PO HS 08/21/13 09/07/18 lamoTRIgine [LaMICtal] 100 mg PO QAM 08/21/13 09/07/18 Atenolol [Tenormin] 25 mg PO DAILY 01/25/16 09/07/18 Citalopram Hydrobromide 40 mg PO DAILY 01/25/16 09/07/18 [Citalopram HBr] Fluticasone Propionate [Flonase 2 spray EA NOSTRIL DAILY 01/25/16 09/07/18 Allergy Relief] Warfarin [Coumadin] 5 mg PO SUMOTUWEFRSA 01/25/16 09/07/18 Baclofen 10 mg PO TID 01/22/17 09/07/18 Albuterol Inhaler [Ventolin Hfa 1 - 2 puff INHALATION RT-Q6H PRN 06/26/18 09/07/18 Inhaler] Budesonide/Formoterol Fumarate 2 puff INHALATION BID 06/26/18 09/07/18 [Symbicort 80-4.5 Mcg Inhaler] Calcium Carbonate [Calcium] 1,200 mg PO DAILY 06/26/18 09/07/18 Cholecalciferol [Vitamin D3] 1,000 unit PO DAILY 06/26/18 09/07/18 Cyanocobalamin (Vitamin B-12) 6,000 mcg PO DAILY 06/26/18 09/07/18 [Vitamin B-12] Gabapentin [Neurontin] 300 mg PO BID 06/26/18 09/07/18 Insulin Lispro [humaLOG Kwikpen] See Protocol SQ AC-TID PRN 06/26/18 09/07/18 Insulin NPH [HumuLIN N] 20 unit SQ HS 06/26/18 09/07/18 Melatonin 30 mg PO HS 06/26/18 09/07/18 Turmeric Root Extract [Turmeric] 500 mg PO DAILY 06/26/18 09/07/18 Zinc 50 mg PO DAILY 06/26/18 09/07/18 hydrOXYzine PAMOATE [Vistaril] 50 mg PO QID PRN MDD TAKES WITH 06/26/18 09/07/18 PERCOCET oxyCODONE-APAP 10-325MG [Percocet 1 tab PO Q8HR PRN 06/26/18 09/07/18 10-325 mg] Celecoxib [CeleBREX] 200 mg PO DAILY 07/05/18 09/07/18 Cephalexin [Keflex] 500 mg PO Q6HR 07/05/18 09/07/18 predniSONE 5 mg PO BID 09/07/18 09/07/18 Allergies Allergy/AdvReac Type Severity Reaction Status Date / Time acetaminophen [From Tylenol] Allergy Itching Verified 09/07/18 09:48 cephalexin [From Keflex] Allergy Swelling Verified 09/07/18 09:48 levofloxacin [From Levaquin] Allergy Dyspnea Verified 09/07/18 09:48 morphine Allergy Itching Verified 09/07/18 09:48 sulfamethoxazole Allergy Dyspnea Verified 09/07/18 09:48 [From Bactrim] trimethoprim [From Bactrim] Allergy Dyspnea Verified 09/07/18 09:48 lisinopril AdvReac Cough Verified 09/07/18 09:48 Review of Systems ROS Statement: Those systems with pertinent positive or pertinent negative responses have been documented in the HPI. ROS Other: All systems not noted in ROS Statement are negative. EKG Findings - EKG Results: EKG: interpreted by BETSY, sinus rhythm (Sinus rhythm rate of 93. Interval 160 QRS duration 86 QT since QTC 374/465 nonspecific changes old inferior changes noted) Past Medical History Past Medical History: COPD, Diabetes Mellitus, Deep Vein Thrombosis (DVT), Hyperlipidemia, Hypertension, Thyroid Disorder Additional Past Medical History / Comment(s): Sarcoidosis, DDD, HERNIATED DISCS WITH BACK PAIN., HX OF DVTS [place] LEGS., STATES FALL 06/06/18 WITH FX OF L-1 History of Any Multi-Drug Resistant Organisms: MRSA Date of last positivie culture/infection: 01/25/16 MDRO Source:: left hand culture Past Surgical History: Adenoidectomy, Back Surgery, Cholecystectomy, Hysterectomy, Joint Replacement, Orthopedic Surgery, Tonsillectomy Additional Past Surgical History / Comment(s): cervical laminectomy, bladder suspension, laser eye surgery, [place] total knees, [place] carpal tunnel with both thumb joints replaced. Past Anesthesia/Blood Transfusion Reactions: No Reported Reaction, Motion Sickness Additional Past Anesthesia/Blood Transfusion Reaction / Comment(s): . Past Psychological History: Bipolar, Depression Smoking Status: Never smoker Past Alcohol Use History: None Reported Past Drug Use History: None Reported - Past Family History Father Additional Family Medical History / Comment(s): ALCOHOLIC AT AGE 87 Mother Family Medical History: Coronary Artery Disease (CAD) Additional Family Medical History / Comment(s): TRIPLE CABG General Exam - General Exam Comments Initial Comments: This is a well-developed well-nourished awake alert oriented 3 female Limitations: no limitations General appearance: alert, anxious Head exam: Present: atraumatic, normocephalic, normal inspection Eye exam: Present: normal appearance, PERRL, EOMI. Absent: scleral icterus, conjunctival injection, periorbital swelling ENT exam: Present: normal exam, mucous membranes moist Neck exam: Present: normal inspection, full ROM, other (No stridor JVD or bruits). Absent: tenderness, meningismus, lymphadenopathy Respiratory exam: Present: normal lung sounds bilaterally, chest wall tenderness. Absent: respiratory distress, wheezes, rales, rhonchi, stridor Cardiovascular Exam: Present: regular rate, normal rhythm, normal heart sounds. Absent: systolic murmur, diastolic murmur, rubs, gallop, clicks GI/Abdominal exam: Present: soft, normal bowel sounds. Absent: distended, tenderness, guarding, rebound, rigid Extremities exam: Present: normal inspection, full ROM, normal capillary refill. Absent: tenderness, pedal edema, joint swelling, calf tenderness Back exam: Present: normal inspection Neurological exam: Present: alert, oriented X3, CN II-XII intact Psychiatric exam: Present: normal affect, normal mood Skin exam: Present: warm, dry, intact, normal color. Absent: rash Course Vital Signs 09/07/18 09/07/18 09/07/18 08:45 09:10 09:11 Temperature 98.1 F Pulse Rate 106 H 93 Pulse Rate [ 93 Community Program Assistant ] Respiratory 20 18 Rate Blood Pressure 173/95 148/96 O2 Sat by Pulse 97 97 Oximetry 09/07/18 09/07/18 10:31 12:02 Temperature Pulse Rate 95 135 H Pulse Rate [ Community Program Assistant ] Respiratory 18 18 Rate Blood Pressure 145/98 128/85 O2 Sat by Pulse 96 96 Oximetry - Reevaluation(s) Reevaluation #1: 09/07/18 13:45 Patient continued to have some chest pain reproducible and otherwise initial workup was negative for acute findings. Reevaluation #2: 09/07/18 13:46 Repeat EKG showed patient to have sinus tachycardia of 111. We'll 162 QRS duration 80 QT since QTC 348/473 artifact is present old inferior infarct changes some evidence a left axis deviation Reevaluation #3: 09/07/18 13:47 Douglas monitor done initially upon presentation showed a heart rate of 95 with no evidence of PVCs or PACs. This was indicated because of the chest pain to rule out dysrhythmia Chest Pain MDM - MDM I did review the imaging and report no acute findings. I did discuss the findings with the patient and with Dr. Ruth she'll be admitted with consultation by cardiology. The patient is subtherapeutic with respect her Coum ned he'll be started on heparin Critical Care Time Critical Care Time: Yes Critical Care Time: 35 minutes of critical care time which includes initial presentation with history physical labs x-rays repeated evaluations the patient review of old charting discussed with the patient regarding findings discussed with Dr. Ruth. Admission orders documentation the above Disposition Clinical Impression: Unstable angina pectoris, Coronary syndrome, acute Disposition: ADMITTED IP TO THIS [facility] Condition: Fair Referrals: Mejia Early MD [Primary Care Provider] - 1-2 days
--- NOTE | 2018-09-07 09:24 | XR ---
EXAMINATION TYPE: XR chest 2V DATE OF EXAM: 09/07/2018 COMPARISON: Prior chest x-ray 06/22/2018 HISTORY: Chest pain TECHNIQUE: Frontal and lateral views of the chest are obtained. FINDINGS: There is no focal air space opacity, pleural effusion, or pneumothorax seen. The cardiac silhouette size is stable and partially obscured as on prior. Left hemidiaphragm is elevated as on p rior exam. There are overlying cardiac leads. The aorta is dense. The osseous structures are intact. IMPRESSION: No acute cardiopulmonary process.
[2018-09-07] MEDS ORDERED: HEPARIN SOD,PORK IN 0.45% NACL 25,000 UNIT in 0.45% NACL 1 250ML.BAG IV SCH ×2 (09:30→14:00)
[2018-09-07 09:40] LABS: Basophils # (A) 0.1 k/uL (0-0.2); Basophils % (A) 1 %; Eosinophils # (A) 0.3 k/uL (0-0.7); Eosinophils % (A) 3 %; HCT 44.2 % (34.0-46.0); HGB 14.5 gm/dL (11.4-16.0); Lymphocytes # (A) 3.4 k/uL (1.0-4.8); Lymphocytes % (A) 35 %; MCHC 32.8 g/dL (31.0-37.0); MCV 88.4 fL (80.0-100.0); Monocytes # (A) 0.5 k/uL (0-1.0); Monocytes % (A) 5 %; Neutrophils # (A) 5.1 k/uL (1.3-7.7); Neutrophils % (A) 54 %; Platelet Count 294 k/uL (150-450); RDW 14.1 % (11.5-15.5); WBC 9.5 k/uL (3.8-10.6)
[2018-09-07 09:44] LABS: INR 1.2 (<1.2); Partial Thromboplastin Time 25.6 sec (22.0-30.0); Prothrombin Time 12.1 sec (9.0-12.0)
[2018-09-07 09:47] LABS: ALT 26 U/L (9-52); AST 17 U/L (14-36); Albumin 4.3 g/dL (3.5-5.0); Alkaline Phosphatase 69 U/L (38-126); Anion Gap 8 mmol/L; Blood Urea Nitrogen 19 mg/dL (7-17); Calcium 9.7 mg/dL (8.4-10.2); Carbon Dioxide 27 mmol/L (22-30); Chloride 104 mmol/L (98-107); Glucose 145 mg/dL (74-99); Magnesium 1.9 mg/dL (1.6-2.3); Potassium 3.9 mmol/L (3.5-5.1); Sodium 139 mmol/L (137-145); Total Bilirubin 0.7 mg/dL (0.2-1.3); Total Protein 7.1 g/dL (6.3-8.2)
[2018-09-07] MEDS ORDERED: MAG HYDROX/AL HYDROX/SIMETH 30 ML, HYOSCYAMINE ELIXIR 10 ML, CIMETIDINE HCL 300 MG PO STA ×3 (10:10)
[2018-09-07] MEDS ORDERED: SODIUM CHLORIDE 0.9% 500 ML 500 ML IV STA (13:50)
[2018-09-07] MEDS ORDERED: NITROGLYCERIN SL TABS 0.4 MG TAB SUBLINGUAL PRN (13:50)
[2018-09-07] MEDS ORDERED: hydrOXYzine PAMOATE 25 MG CAP PO PRN (13:54)
[2018-09-07] MEDS ORDERED: ALBUTEROL NEBULIZED 2.5 MG/3 ML INHALATION PRN (13:54)
[2018-09-07] MEDS: oxyCODONE-APAP 10-325MG 1 EACH TAB PO PRN (16:12)
[2018-09-07 16:57] LABS: Glucose,Whole Blood 161 mg/dL (75-99)
[2018-09-07] MEDS: SODIUM CHLORIDE 0.9% 1,000 ML IV SCH (17:16)
[2018-09-07] MEDS: BACLOFEN 10 MG TAB PO SCH ×2 (17:16→20:13)
[2018-09-07] MEDS: INSULIN ASPART (NovoLOG) 100 UNIT/ML VIAL SQ SCH ×2 (17:16→21:01)
[2018-09-07] MEDS ORDERED: CEPHALEXIN 500 MG CAP PO SCH (18:00)
[2018-09-07] MEDS: SYMBICORT 80-4.5 MCG INHALER INHALATION SCH (19:27)
[2018-09-07] MEDS: NITROGLYCERIN OINT 1 INCH/GM PACKET TOPICAL SCH (19:32)
--- NOTE | 2018-09-07 19:50 | CT ---
EXAMINATION TYPE: CT chest angio for PE DATE OF EXAM: 09/07/2018 COMPARISON: 07/22/2010 HISTORY: elevated d-dimer CT DLP: 504.4 mGycm Automated exposure control for dose reduction was used. CONTRAST: CT Chest for pulmonary embolism performed with with IV Contrast, patient injected with 76cc mL of Iso griffin 370. FINDINGS: There are 3-D post processed images. There is some atelectasis at the left lung base. The other lung burns are clear. There is no evidenc e of a pulmonary mass. There is mild elevated left diaphragm. Heart size is normal. There is no peric ardial effusion. There is no mediastinal adenopathy. There are no hilar masses. Thoracic aorta has normal size and contour. There is no aneurysm or dissection. There is normal contrast opacification of the pulmonary arteries. I see no filling defect. There is 25% compression fracture of L1 with vertebroplasty noted. There is minor degenerative spurri ng in the thoracic spine. I see no acute fracture. IMPRESSION: No evidence of pulmonary embolism. Mild atelectasis at the left lung base related to elevated left di aphragm.
[2018-09-07] MEDS: predniSONE 5 MG TAB PO SCH (20:13)
[2018-09-07] MEDS: GABAPENTIN 300 MG CAP PO SCH (20:13)
[2018-09-07] MEDS ORDERED: ATORVASTATIN 20 MG TAB PO SCH (21:00)
[2018-09-07] MEDS ORDERED: INSULIN NPH 300 UNIT/3 ML VIAL SQ SCH (21:00)
[2018-09-07] MEDS ORDERED: INSULIN DETEMIR (LEVEMIR) 100 UNIT/ML SYR SQ SCH (21:00)
[2018-09-07] MEDS ORDERED: MELATONIN 5 MG TABLET PO SCH (21:00)
[2018-09-07 21:10] LABS: Glucose,Whole Blood 137 mg/dL (75-99)
[2018-09-08] MEDS: NITROGLYCERIN OINT 1 INCH/GM PACKET TOPICAL SCH (00:16)
[2018-09-08] MEDS: SODIUM CHLORIDE 0.9% 1,000 ML IV SCH (00:18)
[2018-09-08 04:13] LABS: Basophils % (A) 0 %; Eosinophils # (A) 0.2 k/uL (0-0.7); Eosinophils % (A) 2 %; HCT 40.4 % (34.0-46.0); HGB 12.9 gm/dL (11.4-16.0); Lymphocytes # (A) 2.3 k/uL (1.0-4.8); Lymphocytes % (A) 26 %; MCH 28.7 pg (25.0-35.0); MCHC 31.8 g/dL (31.0-37.0); Mean Platelet Volume 6.5; Monocytes # (A) 0.4 k/uL (0-1.0); Monocytes % (A) 5 %; Neutrophils # (A) 5.9 k/uL (1.3-7.7); Neutrophils % (A) 66 %; Platelet Count 242 k/uL (150-450); RBC 4.48 m/uL (3.80-5.40); RDW 13.4 % (11.5-15.5)
[2018-09-08 04:36] LABS: Cholesterol 205 mg/dL (<200); HDL Cholesterol 77 mg/dL (40-60); LDL Cholesterol,Calculated 105 mg/dL (0-99); Triglycerides 113 mg/dL (<150)
[2018-09-08] MEDS ORDERED: LEVOTHYROXINE 75 MCG TAB PO SCH (06:30)
[2018-09-08 06:57] LABS: Glucose,Whole Blood 146 mg/dL (75-99)
[2018-09-08] MEDS: SYMBICORT 80-4.5 MCG INHALER INHALATION SCH (07:17)
[2018-09-08] MEDS: INSULIN ASPART (NovoLOG) 100 UNIT/ML VIAL SQ SCH ×2 (08:50→12:45)
[2018-09-08] MEDS: predniSONE 5 MG TAB PO SCH (08:56)
[2018-09-08] MEDS: BACLOFEN 10 MG TAB PO SCH (08:58)
[2018-09-08] MEDS: GABAPENTIN 300 MG CAP PO SCH (08:58)
[2018-09-08] MEDS: oxyCODONE-APAP 10-325MG 1 EACH TAB PO PRN (08:58)
[2018-09-08] MEDS ORDERED: CITALOPRAM HYDROBROMIDE 20 MG TAB PO SCH (09:00)
[2018-09-08] MEDS ORDERED: CHOLECALCIFEROL 1,000 UNIT TAB PO SCH (09:00)
[2018-09-08] MEDS ORDERED: CALCIUM CARBONATE 500 MG CHEWABLE PO SCH (09:00)
[2018-09-08] MEDS ORDERED: ATENOLOL 25 MG TAB PO SCH (09:00)
[2018-09-08] MEDS ORDERED: ASPIRIN 325 MG TAB PO SCH (09:00)
[2018-09-08] MEDS ORDERED: CYANOCOBALAMIN 500 MCG TAB PO SCH (09:00)
[2018-09-08] MEDS ORDERED: ASPIRIN 81 MG PO SCH (09:00)
[2018-09-08] MEDS ORDERED: FLUTICASONE 50MCG/SPRAY NASAL 16GM EA NOSTRIL SCH (09:00)
[2018-09-08] MEDS ORDERED: MELOXICAM 7.5 MG TAB PO SCH (09:00)
[2018-09-08] MEDS ORDERED: lamoTRIgine 100 MG TAB PO SCH (09:00)
[2018-09-08] MEDS ORDERED: ZINC SULFATE 220 MG CAP PO SCH (09:00)
--- NOTE | 2018-09-08 09:23 | CONS ---
CONSULTATION Mrs. Damon is a 68-year-old female who is followed by Dr. Early, has a history of hypertension, hyperlipidemia, diabetes mellitus, who presented with symptoms of chest discomfort that occurred at rest. The discomfort was left-sided, felt like burning and persisted. She felt mildly dyspneic. No dizziness. No palpitation. Came into the emergency room subsequently admitted. The patient has had cardiac catheterization in the past about 5 years ago according to her that was unremarkable. She has some dyspnea on exertion. She carries diagnosis of a chronic obstructive lung disease, although she has not been a smoker. She has no significant peripheral edema. No clear PND. No orthopnea. No syncope. MEDICATION: Her medications at home include insulin, melatonin, prednisone, oxycodone, Lamictal, Restoril, Coumadin, turmeric, simvastatin, Synthroid, Neurontin, Flonase, vitamin B, citalopram, Celebrex, calcium, baclofen, atenolol 25 mg daily and Ventolin. She had carries the diagnosis of atrial fibrillation, although I do not have clear documentation of that and a prior DVT and that is why she has been on Coumadin more recently for the atrial fibrillation. She has been in sinus mechanism since her admission. Her coronary risk factors are positive for history of hypertension, hyperlipidemia, diabetes. She is a nonsmoker. REVIEW OF SYSTEMS: RESPIRATORY system: She has no recent wheezing. She has recent cough and fever with respiratory infection. GI system: No recent GI bleed. No peptic ulcer disease. No nausea, no vomiting. system: No hematuria or dysuria. NERVOUS SYSTEM: No stroke or seizure. PHYSICAL EXAMINATION: She is a 68-year-old female, alert, oriented, in no apparent distress. Blood pressure 147/70 with a heart rate in the 90s. HEAD: Normocephalic. Eyes sclerae nonicteric. NECK: Good upstroke. No jugular venous distention. LUNGS: Clear to auscultation. HEART: Regular rate and rhythm S1, S2. No S3 with systolic murmur at the base. No diastolic murmur. No rub. ABDOMEN: Soft, nontender, obese. Positive bowel sounds. No organomegaly. EXTREMITIES: No edema. Intact distal pulses. LAB DATA: EKG revealed a sinus mechanism, left axis deviation. Poor R-wave progression. No acute changes, cannot exclude a prior inferior myocardial infarction. CT scan of the chest showed no evidence of pulmonary embolism. Chest x-ray shows no acute infiltrate. Lab data revealed troponin less than 0.012. D-dimer 0.7. BUN and creatinine 19 and 0.56. Hemoglobin of 14.5. Cholesterol 205, LDL of 105, HDL of 77. IMPRESSION: 1. Chest discomfort atypical for ischemic heart disease probably noncardiac. 2. History of hypertension. 3. Hyperlipidemia. 4. Diabetes mellitus. 5. Prior history of atrial fibrillation although no documentation of atrial fibrillation at this time. The patient is subtherapeutic on her INR. RECOMMENDATION: From the cardiac standpoint, I will obtain echocardiogram with Doppler, increase her level of activity. If she remains stable, I expect she should be able to be discharged home and followed as an outpatient to see if a further workup is needed. Thank you for this consult. We will follow with you. CHANDLER / AYANNAN: [id number] /
[2018-09-08] MEDS ORDERED: PANTOPRAZOLE 40 MG TABLET PO SCH (09:45)
--- NOTE | 2018-09-08 10:22 | P.HPIM ---
History of Present Illness H&P Date: 09/08/18 Chief Complaint: Recurrent chest pain and angina, severe GERD, COPD, diabetes, A. fib 68-year-old mildly overweight female one of Dr. Whitlock patient with past medical history of COPD, diabetes, history of DVT, A. fib with RVR, history of sarcoidosis hypothyroidism who had significant URI bronchitis and COPD for the last few weeks has been having symptoms on and off has been off antibiotics currently. patient developed to have worsening midsternal chest pain radiating to the jaw and the upper part of her chest wall associated with nausea and palpitation symptoms happen sporadically associated with exertion sometimes associated with heavy meals with worsening dyspnea and shortness of breath and heavy wheezes. Patient ended up coming to the emergency department at [facility] her CK with troponin was negative EKG didn't show any major change her dramatically, patient was started on heparin drip and admitted to the hospital for serial enzyme seen cardiology and possible need to go for stress test or intervention. Review of Systems CONSTITUTIONAL: Well-developed no acute respiratory distress. EYES: No icterus sclerae, no conjunctivitis. EARS, NOSE, MOUTH, THROAT, and FACE: No sore throat, lymphadenopathy, carotid bruits or deformity. RESPIRATORY: Positive chest pain cough or wheezes. CARDIOVASCULAR: Possible angina, palpitation, PND and orthopnea. GASTROINTESTINAL: Positive abdominal pain with nausea no vomiting or Diarrhea or constipation, No GI Bleed, no distention or masses. GENITOURINARY: Negative for Hematuria or UTI, no kidney stones. INTEGUMENT/BREAST: Negative for any muscular injury with mild osteoarthritis.. HEMATOLOGIC/LYMPHATIC: Negative for bleed or purpura. MUSCULOSKELTAL: Negative for Myalgia or arthralgia. NEURLOGICAL: No LOC, Sz or syncope, blurred vision dizziness or abnormality.. BEHAVIORAL/PSYCH: Negative. ENDOCRINE: Negative. Past Medical History Past Medical History: COPD, Diabetes Mellitus, Deep Vein Thrombosis (DVT), Hyperlipidemia, Hypertension, Thyroid Disorder Additional Past Medical History / Comment(s): Sarcoidosis, DDD, HERNIATED DISCS WITH BACK PAIN., HX OF DVTS ROSCOE LEGS., STATES FALL 06/06/18 WITH FX OF L-1, h ypothyroid History of Any Multi-Drug Resistant Organisms: MRSA Date of last positivie culture/infection: 01/25/16 MDRO Source:: left hand culture Past Surgical History: Adenoidectomy, Back Surgery, Cholecystectomy, Hysterectomy, Joint Replacement, Orthopedic Surgery, Tonsillectomy Additional Past Surgical History / Comment(s): cervical laminectomy, bladder suspension, laser eye surgery, roscoe total knees, Roscoe carpal tunnel with both thumb joints replaced. right rotator cuff repair, bunion surgeries. Past Anesthesia/Blood Transfusion Reactions: No Reported Reaction, Motion Sickness Additional Past Anesthesia/Blood Transfusion Reaction / Comment(s): . Past Psychological History: Bipolar, Depression Additional Psychological History / Comment(s): . Smoking Status: Never smoker Past Alcohol Use History: None Reported Additional Past Alcohol Use History / Comment(s): . Past Drug Use History: None Reported - Past Family History Father Additional Family Medical History / Comment(s): ALCOHOLIC AT AGE 87 Mother Family Medical History: Coronary Artery Disease (CAD) Additional Family Medical History / Comment(s): TRIPLE CABG Medications and Allergies Home Medications Medication Instructions Recorded Confirmed Type Levothyroxine Sodium [Synthroid] 75 mcg PO DAILY 08/21/13 09/07/18 History Simvastatin [Zocor] 40 mg PO HS 08/21/13 09/07/18 History lamoTRIgine [LaMICtal] 100 mg PO QAM 08/21/13 09/07/18 History Atenolol [Tenormin] 25 mg PO DAILY 01/25/16 09/07/18 History Citalopram Hydrobromide 40 mg PO DAILY 01/25/16 09/07/18 History [Citalopram HBr] Fluticasone Propionate [Flonase 2 spray EA NOSTRIL DAILY 01/25/16 09/07/18 History Allergy Relief] Warfarin [Coumadin] 5 mg PO SUMOTUWEFRSA 01/25/16 09/07/18 History Baclofen 10 mg PO TID 01/22/17 09/07/18 History Albuterol Inhaler [Ventolin Hfa 1 - 2 puff INHALATION RT-Q6H PRN 06/26/18 09/07/18 History Inhaler] Budesonide/Formoterol Fumarate 2 puff INHALATION RT-BID 06/26/18 09/07/18 History [Symbicort 80-4.5 Mcg Inhaler] Calcium Carbonate [Calcium] 1,200 mg PO DAILY 06/26/18 09/07/18 History Cholecalciferol [Vitamin D3] 1,000 unit PO DAILY 06/26/18 09/07/18 History Cyanocobalamin (Vitamin B-12) 6,000 mcg PO DAILY 06/26/18 09/07/18 History [Vitamin B-12] Gabapentin [Neurontin] 300 mg PO BID 06/26/18 09/07/18 History Insulin Lispro [humaLOG Kwikpen] See Protocol SQ AC-TID PRN 06/26/18 09/07/18 History Melatonin 20 mg PO HS 06/26/18 09/07/18 History Turmeric Root Extract [Turmeric] 500 mg PO DAILY 06/26/18 09/07/18 History Zinc 50 mg PO DAILY 06/26/18 09/07/18 History hydrOXYzine PAMOATE [Vistaril] 50 mg PO QID PRN MDD TAKES WITH 06/26/18 09/07/18 History PERCOCET oxyCODONE-APAP 10-325MG [Percocet 1 tab PO Q8HR PRN 06/26/18 09/07/18 History 10-325 mg] Celecoxib [CeleBREX] 200 mg PO DAILY 07/05/18 09/07/18 History Insulin Detemir (Levemir) [Levemir] 20 unit SQ PC-SUPPER 09/07/18 09/07/18 History predniSONE 5 mg PO BID 09/07/18 09/07/18 History Allergies Allergy/AdvReac Type Severity Reaction Status Date / Time acetaminophen [From Tylenol] Allergy Itching Verified 09/07/18 09:48 cephalexin [From Keflex] Allergy Swelling Verified 09/07/18 09:48 levofloxacin [From Levaquin] Allergy Dyspnea Verified 09/07/18 09:48 morphine Allergy Itching Verified 09/07/18 09:48 sulfamethoxazole Allergy Dyspnea Verified 09/07/18 09:48 [From Bactrim] trimethoprim [From Bactrim] Allergy Dyspnea Verified 09/07/18 09:48 lisinopril AdvReac Cough Verified 09/07/18 09:48 Physical Exam Vitals: Vital Signs Temp Pulse Pulse Pulse Resp BP BP 09/08/18 04:46 98.1 F 91 15 147/78 09/08/18 03:07 81 16 09/07/18 23:58 82 15 09/07/18 23:53 98.1 F 86 15 165/74 09/07/18 19:43 95 16 09/07/18 19:07 97.8 F 95 16 178/94 09/07/18 16:00 103 H 18 09/07/18 15:09 98.3 F 103 H 18 159/97 09/07/18 14:42 121/79 09/07/18 14:00 97.9 F 112 H 16 177/89 09/07/18 12:02 135 H 18 128/85 09/07/18 10:31 95 18 145/98 09/07/18 09:11 93 18 148/96 09/07/18 09:10 93 09/07/18 08:45 98.1 F 106 H 20 173/95 Pulse Ox 09/08/18 04:46 97 09/08/18 03:07 09/07/18 23:58 09/07/18 23:53 95 09/07/18 19:43 09/07/18 19:07 94 L 09/07/18 16:00 09/07/18 15:09 97 09/07/18 14:42 09/07/18 14:00 96 09/07/18 12:02 96 09/07/18 10:31 96 09/07/18 09:11 97 09/07/18 09:10 09/07/18 08:45 97 Intake and Output 09/07/18 09/08/18 09/08/18 22:59 06:59 14:59 Intake Total 72.899 Balance 72.899 Intake: Intake, IV Titration 72.899 Amount Heparin Sod,Pork in 0.45% 72.899 NaCl 25,000 unit In 0.45 % NaCl 1 250ml.bag @ 10. 87 UNITS/KG/HR 10.009 mls /hr IV .Q24H [facility] Rx#: [id number] Other: Voiding Method Toilet Toilet # Voids 1 1 General Appearance: Alert, cooperative, no distress, appears stated age. Overweight Neck HEENT: Supple, no lymphadenopathy, no thyroid enlargement, no carotid bruits. Lungs: Decreased expansion bilaterally with fine rhonchi positive mild expiratory wheezes no crackles Chest Wall: Decrease expansion with deep inspiration no tenderness and no deformity was found on exam, no costochondral pain or discomfort. Heart: Irregular rate and rhythm, S1, S2 normal, no murmur, rub or gallop. Back: Symmetric, no curvature, ROM normal, no CVA tenderness. Abdomen: Soft, non-tender, bowel sounds active all four quadrants, no masses, no organomegaly. Extremities: Trace edema and decreased pulses dorsalis pedis bilaterally with mild osteoarthritis. Pulses: 2+ and symmetric. Skin: Skin color, texture, tugor normal, no rashes or lesions. Neurologic: Alert oriented x3 cranial nerves II through XII intact, no motor deficit, no abnormal balance or gait. Results CBC & Chem 7: 09/08/18 03:26 09/07/18 09:00 Labs: Abnormal Lab Results - Last 24 Hours (Table) 09/07/18 09/07/18 09/07/18 Range/Units 09:00 09:00 15:21 PT 12.1 H (9.0-12.0) sec INR 1.2 H (<1.2) APTT 93.9 H (22.0-30.0) sec D-Dimer (<0.60) mg/L FEU BUN 19 H (7-17) mg/dL Glucose 145 H (74-99) mg/dL POC Glucose (mg/dL) (75-99) mg/dL Cholesterol (<200) mg/dL LDL Cholesterol, Calc (0-99) mg/dL HDL Cholesterol (40-60) mg/dL 09/07/18 09/07/18 09/07/18 Range/Units 15:21 16:52 20:40 PT (9.0-12.0) sec INR (<1.2) APTT 43.6 H (22.0-30.0) sec D-Dimer 0.70 H (<0.60) mg/L FEU BUN (7-17) mg/dL Glucose (74-99) mg/dL POC Glucose (mg/dL) 161 H (75-99) mg/dL Cholesterol (<200) mg/dL LDL Cholesterol, Calc (0-99) mg/dL HDL Cholesterol (40-60) mg/dL 09/07/18 09/08/18 09/08/18 Range/Units 20:56 03:26 03:26 PT (9.0-12.0) sec INR (<1.2) APTT 54.1 H (22.0-30.0) sec D-Dimer (<0.60) mg/L FEU BUN (7-17) mg/dL Glucose (74-99) mg/dL POC Glucose (mg/dL) 137 H (75-99) mg/dL Cholesterol 205 H (<200) mg/dL LDL Cholesterol, Calc 105 H (0-99) mg/dL HDL Cholesterol 77 H (40-60) mg/dL 09/08/18 Range/Units 06:53 PT (9.0-12.0) sec INR (<1.2) APTT (22.0-30.0) sec D-Dimer (<0.60) mg/L FEU BUN (7-17) mg/dL Glucose (74-99) mg/dL POC Glucose (mg/dL) 146 H (75-99) mg/dL Cholesterol (<200) mg/dL LDL Cholesterol, Calc (0-99) mg/dL HDL Cholesterol (40-60) mg/dL Thrombosis Risk Factor Assmnt - DVT/VTE Prophylaxis DVT/VTE Prophylaxis: Pharmacologic Prophylaxis ordered, Mechanical Prophylaxis ordered - Choose All That Apply Any of the Below Risk Factors Present?: Yes Each Factor Represents 1 point: Abnormal pulmonary function (COPD), Obesity (BMI >25) Other Risk Factors: Yes Each Risk Factor Represents 2 Points: Age 61-74 years Other congenital or acquired thrombophilia - If yes, enter type in comment: No Thrombosis Risk Factor Assessment Total Risk Factor Score: 4 Thrombosis Risk Factor Assessment Level: Moderate Risk Assessment and Plan Plan: 1 recurrent history of angina and chest pain: Patient will be admitted to the Hospital CK with troponin 3, consult cardiology echocardiogram was order and patient will either go for stress test or heart cath based on the result in the next 24 hours. 2 severe worsening GERD and heartburn: Patient was started on pantoprazole titrate dose and keep him on it between one to twice a day if symptoms are better to stay on it longer time and further management with EGDs and if needed. 3 COPD: Patient has been on albuterol along with Pulmicort and nebulizer continue current medication she still on prednisone 5 mg twice a day. 4 A. fib: Patient still on warfarin along with atenolol pulse rates under control currently. 5 chronic pain management: Patient is doing Percocet and baclofen. 6 type 2 diabetes on insulin: Continue Levemir 20 units along with NovoLog per sliding scales coverage. 7 hypothyroidism: Patient has been on levothyroxine 75 g daily. 8 chronic neuropathy: Mostly secondary to lower back pain has been on gabapentin 300 mg twice a day. 9 chronic depression: Still on citalopram 40 mg a day along with Lamictal 100 mg daily. 10 hyperlipidemia: Continue patient on simvastatin 40 mg daily. 11 chronic back pain remain on hydrocodone and baclofen still on Celebrex 200 mg daily. 12 GI prophylaxis: Patient will be on pantoprazole. 13 DVT prophylaxis: Patient remain on anticoagulation. CODE STATUS: Full code. Admit patient to observation status for 24 hours.
[2018-09-08 11:40] LABS: Glucose,Whole Blood 172 mg/dL (75-99)
[2018-09-08 12:11] VITALS: RESP 16
--- NOTE | 2018-09-08 16:03 | ECHOF ---
Referral Reason: MEASUREMENTS -------- HEIGHT: 160.0 cm WEIGHT: 92.1 kg BP: 132/87 RVIDd: 2.8 cm (< 3.3) IVSd: 1.6 cm (0.6 - 1.1) LVIDd: 3.7 cm (3.9 - 5.3) LVPWd: 1.4 cm (0.6 - 1.1) IVSs: 1.7 cm LVIDs: 2.8 cm LVPWs: 1.6 cm LA Diam: 3.5 cm (2.7 - 3.8) LAESV Index (A-L): 14.89 ml/m Ao Diam: 3.0 cm (2.0 - 3.7) AV Cusp: 2.0 cm (1.5 - 2.6) MV EXCURSION: 14.382 mm (> 18.000) MV EF SLOPE: 50 mm/s (70 - 150) EPSS: 0.6 cm MV E Ramu: 0.75 m/s MV DecT: 304 ms MV A Ramu: 1.05 m/s MV E/A Ratio: 0.71 RAP: 15.00 mmHg RVSP: 39.15 mmHg FINDINGS -------- Sinus rhythm. This was a technically difficult study with suboptimal parasternal views. The left ventricular size is normal. There is moderate concentric left ventricular hypertrophy. O verall left ventricular systolic function is normal with, an EF between 55 - 60 %. The right ventricle is normal in size. The global wall thickness of the right ventricle is moderate ly enlarged. Normal LA size by volume 22+/-6 ml/m2. The right atrium is normal in size. There is mild aortic valve sclerosis. There is mild aortic regurgitation. The mitral valve leaflets are mildly thickened. Mild mitral annular calcification present. There is trace to mild mitral regurgitation. Mild tricuspid regurgitation present. There is mild pulmonary hypertension. The right ventricular systolic pressure, as measured by Doppler, is 39.15mmHg. The pulmonic valve was not well visualized. There is no pulmonic regurgitation present. The aortic root size is normal. The inferior vena cava is dilated with no significant inspiratory collapse which is consistent estima jana right atrial pressure of >15 mmHg. There is no pericardial effusion. CONCLUSIONS -------- 1. Sinus rhythm. 2. This was a technically difficult study with suboptimal parasternal views. 3. The left ventricular size is normal. 4. There is moderate concentric left ventricular hypertrophy. 5. Overall left ventricular systolic function is normal with, an EF between 55 - 60 %. 6. The right ventricle is normal in size. 7. The global wall thickness of the right ventricle is moderately enlarged. 8. Normal LA size by volume 22+/-6 ml/m2. 9. There is mild aortic valve sclerosis. 10. There is mild aortic regurgitation. 11. The mitral valve leaflets are mildly thickened. 12. Mild mitral annular calcification present. 13. There is trace to mild mitral regurgitation. 14. Mild tricuspid regurgitation present. 15. There is mild pulmonary hypertension. 16. The pulmonic valve was not well visualized. 17. There is no pulmonic regurgitation present. 18. The aortic root size is normal. 19. The inferior vena cava is dilated with no significant inspiratory collapse which is consistent es timated right atrial pressure of >15 mmHg. 20. There is no pericardial effusion. PEANUT ROASTER: Viktoria Morrison RDCS
[2018-09-08 17:10] VITALS: BP 154/78; PULSE 71; TEMP 98.4
[2018-09-08] MEDS ORDERED: ATORVASTATIN 40 MG TAB PO SCH (21:00)
== END 2018-09-08 16:40 | disposition home or self-care (01) ==
LOC: EC 08:43 → 1SOBS 13:50
PROVIDERS: ADMIT Internal Medicine; ATTEND Internal Medicine
DX: R07.89 Other chest pain (principal); K21.9 Gastro-esophageal reflux disease without esophagitis; J44.9 Chronic obstructive pulmonary disease, unspecified; E03.9 Hypothyroidism, unspecified; R06.00 Dyspnea, unspecified; D86.9 Sarcoidosis, unspecified; E11.9 Type 2 diabetes mellitus without complications; E78.5 Hyperlipidemia, unspecified; F32.9 Major depressive disorder, single episode, unspecified; G62.9 Polyneuropathy, unspecified; G89.29 Other chronic pain; E66.3 Overweight; Z68.36 Body mass index [BMI] 36.0-36.9, adult; I10 Essential (primary) hypertension; I48.91 Unspecified atrial fibrillation; Z79.01 Long term (current) use of anticoagulants; Z79.1 Long term (current) use of non-steroidal anti-inflammatories (NSAID); Z79.4 Long term (current) use of insulin; Z79.51 Long term (current) use of inhaled steroids; Z79.890 Hormone replacement therapy; Z79.899 Other long term (current) drug therapy; Z86.718 Personal history of other venous thrombosis and embolism; Z90.710 Acquired absence of both cervix and uterus; Z86.14 Personal history of Methicillin resistant Staphylococcus aureus infection; Z96.653 Presence of artificial knee joint, bilateral; Z90.49 Acquired absence of other specified parts of digestive tract; Z82.49 Family history of ischemic heart disease and other diseases of the circulatory system
CPT/HCPCS: 96366 ×2; 96376; 96365; 99291; 36415; 94640 ×2; 93005; 93306; 85379; 83880; 80061; 80053; 83735; 84484; 85025 ×2; 85610; 85730 ×2; 71046; 71275; G0378 ×2; J1644 ×2; J7512 ×2; Q9967

== ENCOUNTER → 2018-11-23 | Outpatient (CLI) | payer MEDICARE ==
[2018-11-23 12:49] LABS: Basophils # (A) 0.1 k/uL (0-0.2); Basophils % (A) 1 %; Eosinophils # (A) 0.5 k/uL (0-0.7); Eosinophils % (A) 5 %; HCT 39.7 % (34.0-46.0); HGB 12.8 gm/dL (11.4-16.0); Lymphocytes # (A) 2.7 k/uL (1.0-4.8); Lymphocytes % (A) 27 %; MCH 29.1 pg (25.0-35.0); MCHC 32.4 g/dL (31.0-37.0); Mean Platelet Volume 6.5; Monocytes # (A) 0.6 k/uL (0-1.0); Monocytes % (A) 6 %; Neutrophils % (A) 60 %; Platelet Count 289 k/uL (150-450); RBC 4.41 m/uL (3.80-5.40); RDW 13.3 % (11.5-15.5); WBC 10.1 k/uL (3.8-10.6)
[2018-11-23 12:54] LABS: ALT 23 U/L (9-52); AST 21 U/L (14-36); African American GFR (CKD) >90 (>60 ml/min/1.73 sqM); Albumin 4.1 g/dL (3.5-5.0); Alkaline Phosphatase 79 U/L (38-126); Anion Gap 6 mmol/L; Blood Urea Nitrogen 21 mg/dL (7-17); Calcium 9.2 mg/dL (8.4-10.2); Carbon Dioxide 30 mmol/L (22-30); Chloride 104 mmol/L (98-107); Glucose 160 mg/dL (74-99); Non-African American GFR(CKD) >90 (>60 ml/min/1.73 sqM); Potassium 4.8 mmol/L (3.5-5.1); Sodium 140 mmol/L (137-145); Total Bilirubin 0.3 mg/dL (0.2-1.3)
--- NOTE | 2018-11-23 12:59 | XR ---
EXAMINATION TYPE: XR chest 2V DATE OF EXAM: 11/23/2018 COMPARISON: 09/07/2018 HISTORY: Preop back surgery. TECHNIQUE: Frontal and lateral views of the chest are obtained. FINDINGS: There is chronic left hemidiaphragm elevation. Minimal left basilar subsegmental atelectas is is also seen. Remainder the lungs are clear. The known compression deformity of L1 has kyphoplasty change. Surgical clips are seen in the right upper quadrant from prior cholecystectomy. Cardiomedias tinal silhouette is stable and upper limits of normal. Mild degenerative changes of the spine and oss eous demineralization. IMPRESSION: Chronic left basilar subsegmental atelectasis and left hemidiaphragm elevation.
[2018-11-23 13:02] LABS: INR 1.2 (<1.2); Partial Thromboplastin Time 27.5 sec (22.0-30.0); Prothrombin Time 12.5 sec (9.0-12.0)
[2018-11-23 13:07] LABS: Appearance,Urine Clear (Clear); Bilirubin,Urine Negative (Negative); Blood,Urine Negative (Negative); Color,Urine Yellow; Glucose,Urine (UA) 2+ (Negative); Ketones,Urine Negative (Negative); Leukocyte Esterase,Urine Small (Negative); Mucus,Urine Occasional /hpf; Nitrite,Urine Negative (Negative); PH, Urine 5.5 (5.0-8.0); Protein,Urine Trace (Negative); RBC,Urine 1 /hpf (0-5); Specific Gravity,Urine 1.024 (1.001-1.035); Squamous Epithelial Cell,Urine 1 /hpf (0-4); Urobilinogen,Urine <2.0 mg/dL (<2.0); WBC,Urine 3 /hpf (0-5)
== END | disposition home or self-care (01) ==
LOC: LABWHC1 12:05
PROVIDERS: ATTEND Orthopaedic Surgery Orthopaedic Surgery of the Spine
DX: Z01.812 Encounter for preprocedural laboratory examination (principal); J98.11 Atelectasis
CPT/HCPCS: 71046; 80053; 81001; 85025; 85610; 85730; 86850; 86900; 86901; 87070

== ENCOUNTER 2018-12-05 08:30 | Inpatient (IN) | payer MEDICARE ==
[2018-12-20 13:40] VITALS: BMI 36.2
[2018-12-26] MEDS ORDERED: BACITRACIN 50,000 UNIT, POLYMYXIN B 500,000 UNIT in SODIUM CHLORIDE 0.9% IRRIGATIO 1,00... IRRIGATION ONE (05:00)
[2018-12-26] MEDS ORDERED: CLINDAMYCIN 900 MG in DEXTROSE 5% IN WATER 50 ML IVPB ONE ×2 (05:00)
[2018-12-26] MEDS ORDERED: VANCOMYCIN 1,500 MG in SODIUM CHLORIDE 0.9% 250 ML IVPB ONE (06:00)
[2018-12-26] MEDS ORDERED: DEXAMETHASONE SOD PHOSPHATE 10 MG/ML 1 ML VIAL IV ONE (07:22)
[2018-12-26] MEDS ORDERED: MIDAZOLAM 2 MG/2 ML VIAL IV PRN (07:22)
[2018-12-26] MEDS ORDERED: ONDANSETRON 4 MG/2 ML VIAL IVP ONE ×2 (07:22→17:23)
[2018-12-26] MEDS ORDERED: LIDOCAINE 1% 20 ML VIAL (10MG/ML) FOR IV START INTRADERMA ONE (11:39)
[2018-12-26] MEDS: LACTATED RINGERS 1,000 ML IV SCH (11:39)
[2018-12-26] MEDS ORDERED: VANCOMYCIN 1,000 MG VIAL IVPB ONE ×2 (11:45→11:49)
[2018-12-26 11:49] LABS: INR 0.9 (<1.2); Prothrombin Time 9.8 sec (9.0-12.0)
[2018-12-26 11:52] LABS: Glucose,Whole Blood 163 mg/dL (75-99)
[2018-12-26] MEDS ORDERED: PROPOFOL 10 MG/ML 20 ML VIAL IV ONE (12:17)
[2018-12-26] MEDS ORDERED: fentaNYL (PF) 50 MCG/ML 2 ML AMP ONE (12:17)
[2018-12-26] MEDS ORDERED: SUCCINYLCHOLINE CHLORIDE 100 MG/5 ML SYR IV ONE (12:17)
[2018-12-26] MEDS ORDERED: PHENYLEPHRINE-0.9% NACL SYG 1 MG/10 ML SYRINGE ONE (12:17)
[2018-12-26] MEDS ORDERED: MIDAZOLAM 2 MG/2 ML VIAL ONE (12:17)
[2018-12-26] MEDS ORDERED: KETAMINE 10 MG/ML 20 ML VIAL ONE (12:17)
[2018-12-26] MEDS ORDERED: LIDOCAINE 0.5%-EPI 1:200,000 50 ML VIAL SQ ONE (12:22)
[2018-12-26] MEDS ORDERED: THROMBIN (BOVINE) 5,000 UNIT VIAL TOPICAL ONE (12:22)
[2018-12-26] MEDS ORDERED: GELATIN SPONGE,ABSORB (LARGE) 1 EACH SPONGE TOPICAL ONE (12:22)
[2018-12-26] MEDS ORDERED: LACTATED RINGERS 1,000 ML IV ONE ×2 (13:13→14:18)
--- NOTE | 2018-12-26 14:27 | FL ---
EXAMINATION TYPE: FL guidance operating room DATE OF EXAM: 12/26/2018 HISTORY: Flouroscopy time 1 minute and 52 seconds of fluoroscopy provided. IMPRESSION: 1. Fluoroscopy time.
[2018-12-26] MEDS ORDERED: BENZOCAINE/MENTHOL LOZENG 1 EACH LOZENGE MUCOUS MEM PRN (16:30)
[2018-12-26] MEDS ORDERED: MAGNESIUM HYDROXIDE 2,400 MG/10 ML CUP PO PRN (16:30)
[2018-12-26] MEDS ORDERED: ONDANSETRON 4 MG/2 ML VIAL IVP PRN (16:30)
[2018-12-26] MEDS ORDERED: HYDROmorphone 0.5 MG/0.5 ML SYRINGE IVP PRN (16:30)
[2018-12-26] MEDS ORDERED: NITROGLYCERIN SL TABS 0.4 MG TAB SUBLINGUAL PRN (16:36)
[2018-12-26] MEDS ORDERED: INSULIN ASPART (NovoLOG) 100 UNIT/ML VIAL SQ PRN (16:36)
[2018-12-26] MEDS: fentaNYL (PF) 50 MCG/ML 2 ML AMP IV PRN ×2 (16:47→16:54)
--- NOTE | 2018-12-26 16:47 | P.OP ---
Date of Procedure: 12/26/18 Preoperative Diagnosis: Degenerative scoliosis, severe spinal stenosis L3 4 L4 5, degenerative disc disease, low back pain, lower extremity radiculopathy, facet arthrosis Postoperative Diagnosis: Degenerative scoliosis, severe spinal stenosis L3 4 L4 5, degenerative disc disease, low back pain, lower extremity radiculopathy, facet arthrosis Anesthesia: GETA Pathology: none sent Condition: stable Disposition: PACU Description of Procedure: DESCRIPTION OF PROCEDURE(S): BRIEF OPERATIVE NOTE Preoperative Diagnosis: Degenerative scoliosis, severe spinal stenosis L3 4 L4 5, degenerative disc disease, low back pain, lower extremity radiculopathy, facet arthrosis Postoperative Diagnosis:Degenerative scoliosis, severe spinal stenosis L3 4 L4 5, degenerative disc disease, low back pain, lower extremity radiculopathy, facet arthrosis Procedure: Laminectomy and decompression bilaterally L3 4 L4 5 Minimally invasive Posterior lateral decompression and facet L3 4 L4 5 fusion Minimally invasive Transforaminal lumbar interbody fusion for a 360 fusion L3 4 L4 5 Discectomy for decompression L3 4 L4 5 Placement of interbody graft L3 4 L4 5 Local autogenous bone grafting Harvesting bone marrow aspirate the pedicle of L3 to be used for bone graft supplement Use of Cell Saver Use of bone graft extenders Surgeon: Dr. Zhang Eeg Technician: Navid BOYLE who is present throughout the entire the case persistence during positioning, dissection, exposure, visualization, and all crucial elements of the case as well as closure. Anesthesia: General anesthesia per Dr. Rosas Estimated blood loss: Approximately 250 mL with 70 given back through Cell Saver Complications: None apparent Components implanted: K2M minimally invasive [place] pedicle screw system with 6 screws measuring 6.5 mm in diameter to rods measured 70 mm each and 2 Barronett cages one measuring 11 mm and one measuring 10 mm Disposition: To recovery room in good stable condition. OPERATIVE INDICATIONS The patient has had long-standing issues in their lower back and lower extremities. She is having worsening of her pain in her back and lower extremities with brisk debility due to the pain. She was found have degenerative scoliosis with severe stenosis particular at L3 4 L4 5 which was a well with her low back lower extremity symptoms. She is not having any prolonged benefit despite aggressive conservative care The patient has been through conservative treatment. We discussed various treatment options including surgery, and the patient wishes to proceed with surgery We discussed the risk, patient's alternatives and benefits of surgery including but not limited to, risk of bleeding risk of infection, risk of need for further surgery, risk of decreased, loss of motion, muscle function, malunion nonunion, hardware failure, nerve damage, paralysis, heart attack, blindness and . OPERATIVE SUMMARY After discussing all the risks, patient alternatives and benefits at length, the patient elected to proceed with surgical intervention, signed informed consent, and presented for their procedure. The patient was seen and examined in the preoperative holding area and the surgical site was marked. The patient was given antibiotics and brought to the operating room. The patient was sedated and intubated by anesthesia in standard fashion. The patient was positioned on to the operating room table in a prone position on the appropriate frame which was well-padded and well molded. We were careful to pad any bony prominences and pressure points. We were careful to maintain the patient's cervical spine and good neutral alignment and position throughout. The patient was prepped and draped in a normal standard fashion. An appropriate timeout and keystone protocol performed. We were able to proceed with the surgery. The local wound area was infiltrated with local anesthetic. I was able utilize C-arm guidance to establish appropriate position over the pedicles bilaterally at the appropriate levels at L3 4 and 5 bilaterally. With the appropriate levels confirmed was able to make small stab incisions over the appropriate pedicle sites bilaterally. Utilizing C-arm in his house able to establish a Jamshidi needle over the lateral aspect of the pedicle and advanced the trocar into the pedicle being careful not to breech superiorly inferiorly medially or laterally. Position was confirmed regularly with AP and lateral images on C-arm. I was able to establish the trocar into the pedicle appropriately into the posterior aspect of the vertebral body bilaterally at the appropriate levels at L3 4 and 5. This was done at each of the pedicle positions and each of the vertebrae. At L3 on the right I was able to withdraw approximately 20 mL of bone marrow aspirate to be used later for the s upplementation of the bone graft. I was able place the guidewire into the trocar and into the vertebral body appropriately under C-arm guidance. Dissection was taken down over the wire to the appropriate starting position for the screw placed. The appropriate length screw was chosen, threaded over the guidewire and screwed appropriately into the pedicle and vertebral body under C-arm guidance in excellent alignment and position with good bony purchase. This is done at each of the screw sites at the appropriate levels at L3 4 and 5 bilaterally. With the screws intact I extended the incision to connect the screw hole sites on the most symptomatic side on the right. I dissected down to establish access over the pars and lamina to the base of the spinous process. I was able to expose the facet joint. The capsule the facet was taken down and showed some severe facet arthrosis at the joint. I was able to use a combination of curettes and Kerrison rongeurs and a high-speed drill to take down the facet joint and do a facetectomy. Partial laminectomy was also performed. I was able get excellent foraminal decompression and central decompression with undermining across midline to perform a laminectomy centrally and contralaterally. As able get good central decompression. The ligamentum flavum was taken down to further decompress centrally and at bilateral neural foramen. I was able to expose the disc space and visualize the traversing nerve root. Note was made of some disc protrusion at the level causing further compression of the nerve root. I was able to establish a annulotomy at the appropriate level protecting soft tissue and neural structures. Note was made of some disc desiccation at the disc. I performed a complete discectomy with accommodation of curettes and rasps and scrapers. I was able get good endplate preparation at the disc space. I sized for the appropriate size interbody spacer protecting the soft tissue and neural structures. The wound was copiously irrigated and suctioned dry. There is no evidence of any dural tear or leak. This was done with similar findings at both L3 4 and L4 5 I was able to pack the disc space with local autogenous bone graft as well as a small amount of bone graft which was also placed into the interbody cage itself. Protecting the soft tissue structures and neural structures I was able place the interbody cage in good alignment and good position with good fit and fill at the interbody space. His issues was confirmed with C-arm guidance. Good hemostasis maintained. There is no evidence of any dural tear or leak. The wound was irrigated and suctioned dry. With the hardware intact, intraoperative C-arm imaging was again taken which showed good alignment and position of the hardware at the appropriate levels of L3 4 and 5. We were then able to measure, contour and place the rods and appropriate hardware bilaterally. I was able to place capcrews, tighten them down, and torque them with the torque screwdriver appropriately. With this intact I was able to place the local autogenous bone graft with additional bone graft enhancer as necessary into the posterior lateral gutters over the dec orticated transverse processes. The remainder of the bone graft was placed over the facet joint on the contralateral side after taking down the facet joint capsule. With the bone graft intact, a stable construct, and good decompression at the appropriate levels, we were able to proceed with closure. Good hemostasis was maintained. There is no evidence of dural tear or leak. The fascia was closed for a watertight closure. he subcuticular tissue was closed with absorbable suture. The wound was cleaned and dried and dressed with the appropriate dressing. The drapes were broken down. The patient was gently rolled back onto their hospital bed being careful to maintain their cervical spine and good neutral alignment and position. They were woken up by anesthesia, extubated, and brought to the recovery room in good stable condition. The patient will be admitted to the hospital for appropriate postoperative care, medical management and monitoring. We will continue to follow them closely about the postoperative course.
[2018-12-26 17:10] LABS: Glucose,Whole Blood 171 mg/dL (75-99)
[2018-12-26] MEDS: HYDROmorphone 1 MG/ML 1 ML SYRINGE IVP ONE ×4 (17:17→17:43)
[2018-12-26] MEDS ORDERED: WARFARIN 5 MG TAB PO SCH (18:00)
[2018-12-26] MEDS: CLINDAMYCIN 600 MG in DEXTROSE 5% IN WATER 50 ML IVPB SCH ×4 (18:23→23:30)
[2018-12-26] MEDS: SODIUM CHLORIDE 0.9% 1,000 ML IV SCH (18:24)
[2018-12-26] MEDS ORDERED: INSULIN DETEMIR (LEVEMIR) 100 UNIT/ML SYR SQ SCH (18:30)
[2018-12-26] MEDS: oxyCODONE-APAP 10-325MG 1 EACH TAB PO PRN (20:26)
[2018-12-26] MEDS: hydrOXYzine PAMOATE 25 MG CAP PO PRN (20:29)
[2018-12-26 20:52] LABS: Glucose,Whole Blood 176 mg/dL (75-99)
[2018-12-26] MEDS: SYMBICORT 80-4.5 MCG INHALER INHALATION SCH (20:55)
[2018-12-26] MEDS: INSULIN ASPART (NovoLOG) 100 UNIT/ML VIAL SQ SCH (21:00)
[2018-12-26] MEDS: BACLOFEN 10 MG TAB PO SCH (21:24)
[2018-12-26] MEDS: GABAPENTIN 300 MG CAP PO SCH (21:24)
[2018-12-26] MEDS: ATORVASTATIN 20 MG TAB PO SCH (21:24)
[2018-12-26] MEDS: HYDROmorphone 1 MG/ML 1 ML SYRINGE IVP PRN (23:26)
[2018-12-27] MEDS: oxyCODONE-APAP 10-325MG 1 EACH TAB PO PRN ×5 (00:39→21:00)
[2018-12-27] MEDS: HYDROmorphone 1 MG/ML 1 ML SYRINGE IVP PRN ×5 (02:27→23:01)
[2018-12-27] MEDS: hydrOXYzine PAMOATE 25 MG CAP PO PRN ×3 (04:18→21:00)
[2018-12-27] MEDS: SODIUM CHLORIDE 0.9% 1,000 ML IV SCH ×2 (05:32→19:40)
[2018-12-27] MEDS: LEVOTHYROXINE 75 MCG TAB PO SCH (06:18)
[2018-12-27 07:24] LABS: Glucose,Whole Blood 173 mg/dL (75-99)
[2018-12-27 07:25] LABS: Basophils % (A) 0 %; Eosinophils % (A) 0 %; HCT 34.3 % (34.0-46.0); HGB 11.3 gm/dL (11.4-16.0); Lymphocytes # (A) 1.2 k/uL (1.0-4.8); Lymphocytes % (A) 10 %; MCH 29.8 pg (25.0-35.0); MCHC 32.9 g/dL (31.0-37.0); MCV 90.7 fL (80.0-100.0); Mean Platelet Volume 6.3; Monocytes # (A) 0.8 k/uL (0-1.0); Monocytes % (A) 7 %; Neutrophils # (A) 9.5 k/uL (1.3-7.7); Neutrophils % (A) 81 %; Platelet Count 212 k/uL (150-450); RBC 3.78 m/uL (3.80-5.40); RDW 13.5 % (11.5-15.5); WBC 11.7 k/uL (3.8-10.6)
[2018-12-27] MEDS: LACTATED RINGERS 1,000 ML IV SCH (07:36)
[2018-12-27] MEDS: INSULIN ASPART (NovoLOG) 100 UNIT/ML VIAL SQ SCH ×3 (07:43→18:07)
[2018-12-27 07:50] LABS: African American GFR (CKD) >90 (>60 ml/min/1.73 sqM); Anion Gap 5 mmol/L; Blood Urea Nitrogen 16 mg/dL (7-17); Calcium 8.5 mg/dL (8.4-10.2); Carbon Dioxide 31 mmol/L (22-30); Chloride 102 mmol/L (98-107); Glucose 166 mg/dL (74-99); Potassium 4.7 mmol/L (3.5-5.1); Sodium 138 mmol/L (137-145)
--- NOTE | 2018-12-27 07:54 | P.PN ---
Progress Note - Text Progress Note Date: 12/27/18 Postoperative day #1 Patient is seen and examined today at bedside. The patient has some pain around the surgical site as expected. Pain is being controlled with medication. She feels like her legs may have made some improvement already with her surgery. She has not yet been out of bed. She denies any nausea or vomiting Physical Exam Afebrile with stable vital signs Abdomen is soft nontender. Chest has good excursion deep and space expiration The incision site is clean dry and intact. No erythema there is no purulence. Extremities have not had neurologic change from prior to surgery. She has sustained dorsal flexion plantarflexion and EHL intact. Calves and thighs were soft nontender without evidence of DVT. There are no acute skin changes from the tape that she had on her during surgery Assessment/Plan Postoperative day #1 status post decompression and fusion done minimally invasively for her severe spinal stenosis at L3 4 and L4 5 Patient is progressing as expected from the surgery. We'll start to get her up today and she feels she will be able to this appropriately Her Winston has been discontinued and we'll see how she does with urinating on her own We will continue to increase the patient's mobilization with therapy. We will continue pain control with oral or IV medications. We'll continue to follow patient closely.
[2018-12-27] MEDS: SYMBICORT 80-4.5 MCG INHALER INHALATION SCH ×2 (08:06→19:25)
[2018-12-27] MEDS: FLUTICASONE 50MCG/SPRAY NASAL 16GM NASAL SCH (08:19)
[2018-12-27] MEDS: CLINDAMYCIN 600 MG in DEXTROSE 5% IN WATER 50 ML IVPB SCH ×4 (08:19→16:09)
[2018-12-27] MEDS: CYANOCOBALAMIN 500 MCG TAB PO SCH (08:20)
[2018-12-27] MEDS: ZINC SULFATE 220 MG CAP PO SCH (08:22)
[2018-12-27] MEDS: lamoTRIgine 100 MG TAB PO SCH (08:22)
[2018-12-27] MEDS: CHOLECALCIFEROL 1,000 UNIT TAB PO SCH (08:22)
[2018-12-27] MEDS: GABAPENTIN 300 MG CAP PO SCH ×2 (08:22→20:27)
[2018-12-27] MEDS: CITALOPRAM HYDROBROMIDE 20 MG TAB PO SCH (08:23)
[2018-12-27] MEDS: PANTOPRAZOLE 40 MG TABLET PO SCH (08:23)
[2018-12-27] MEDS: CALCIUM CARBONATE 500 MG CHEWABLE PO SCH (08:23)
[2018-12-27] MEDS: ATENOLOL 25 MG TAB PO SCH (08:24)
[2018-12-27] MEDS: SENNOSIDES-DOCUSATE SODIUM 1 EACH TAB PO SCH (08:24)
[2018-12-27] MEDS: BACLOFEN 10 MG TAB PO SCH ×3 (08:24→20:27)
[2018-12-27 09:31] LABS: Prothrombin Time 10.7 sec (9.0-12.0)
--- NOTE | 2018-12-27 10:41 | XR ---
EXAMINATION TYPE: FL guidance operating room DATE OF EXAM: 12/26/2018 HISTORY: Flouroscopy time 1 minute and 52 seconds of fluoroscopy provided. 4 images. IMPRESSION: 1. Fluoroscopy time. ANTONIO
[2018-12-27 11:32] LABS: Glucose,Whole Blood 204 mg/dL (75-99)
--- NOTE | 2018-12-27 14:55 | P.CONS ---
History of Present Illness - Reason for Consult Consult date: 12/27/18 Medical management - History of Present Illness This is a 68-year-old female patient of Dr. Early with past medical history of COPD, hypertension, hyperlipidemia, seasonal ALLERGIES, diabetes mellitus type 2 insulin requiring, hypothyroidism, gastroesophageal reflux disease, DVT and paroxysmal atrial fibrillation on chronic Coumadin. She denies any history of stroke. Patient has been brought into the hospital in the care of Dr. Zhang status post decompression, laminectomy, fusion the lumbar spine. Patient is history that she was essentially unable to care for herself the past 2 years and daughter and son-in-law were taking care of her. Patient underwent surgery yesterday. She has had no postop complications. Patient states that she is weak feeling well. She stated at the bedside and walk to the bathroom today and also sat in the chair. Patient denies any chest pain, palpitations, shortness of breath, abdominal pain, nausea, vomiting, dysuria. Patient did not eat very much today and Levemir will be decreased until we know she is eating adequately to maintain good blood sugar control. Review of Systems All systems: negative Constitutional: Denies chills, Denies fatigue, Denies fever, Denies lethargy, Denies malaise, Denies poor appetite, Denies weight loss Eyes: denies blurred vision, denies pain Ears, nose, mouth and throat: Denies dysphagia, Denies headache, Denies nasal congestion, Denies nasal discharge, Denies sore throat, Denies vertigo Cardiovascular: Denies chest pain, Denies edema, Denies leg edema, Denies lightheadedness, Denies shortness of breath, Denies syncope Respiratory: Denies cough, Denies cough with sputum, Denies dyspnea, Denies excessive sputum, Denies hemoptysis, Denies home oxygen, Denies snoring Gastrointestinal: Denies abdominal pain, Denies diarrhea, Denies loss of appetite, Denies nausea, Denies vomiting Genitourinary: Denies dysuria, Denies hematuria Musculoskeletal: Denies frequent falls, Denies myalgias Integumentary: Reports wounds, Denies pruritus, Denies rash Neurological: Denies change in mentation, Denies change in speech, Denies numbness, Denies seizures, Denies weakness Psychiatric: Denies anxiety, Denies depression Endocrine: Denies fatigue, Denies weight change Past Medical History Past Medical History: COPD, Diabetes Mellitus, Deep Vein Thrombosis (DVT), Hyperlipidemia, Hypertension, Thyroid Disorder Additional Past Medical History / Comment(s): Sarcoidosis, DDD, HERNIATED DISCS WITH BACK PAIN., HX OF DVTS [place] LEGS., STATES FALL 06/06/18 WITH FX OF L-1, cat scratch fever 01/2016 History of Any Multi-Drug Resistant Organisms: MRSA Year Discovered:: 01/25/16 MDRO Source:: left hand culture Past Surgical History: Adenoidectomy, Back Surgery, Cholecystectomy, Hysterectomy, Joint Replacement, Orthopedic Surgery, Tonsillectomy Additional Past Surgical History / Comment(s): cervical laminectomy, bladder suspension, laser eye surgery, [place] total knees, [place] carpal tunnel with both thumb joints replaced. right rotator cuff repair, bunion surgeries. Past Anesthesia/Blood Transfusion Reactions: No Reported Reaction, Motion Sickness Additional Past Anesthesia/Blood Transfusion Reaction / Comm: . Past Psychological History: Bipolar, Depression Additional Psychological History / Comment(s): . Smoking Status: Never smoker Past Alcohol Use History: None Reported Additional Past Alcohol Use History / Comment(s): . Past Drug Use History: None Reported - Past Family History Father Additional Family Medical History / Comment(s): ALCOHOLIC AT AGE 87 Mother Family Medical History: Pulmonary Embolus Additional Family Medical History / Comment(s): Mother has history of coronary artery disease status post triple vessel CABG. Medications and Allergies Home Medications Medication Instructions Recorded Confirmed Type Levothyroxine Sodium [Synthroid] 75 mcg PO DAILY 08/21/13 12/26/18 History Simvastatin [Zocor] 40 mg PO HS 08/21/13 12/26/18 History lamoTRIgine [LaMICtal] 100 mg PO QAM 08/21/13 12/26/18 History Atenolol [Tenormin] 25 mg PO DAILY 01/25/16 12/26/18 History Citalopram Hydrobromide 40 mg PO DAILY 01/25/16 12/26/18 History [Citalopram HBr] Fluticasone Propionate [Flonase 2 spray EA NOSTRIL DAILY 01/25/16 12/26/18 History Allergy Relief] Warfarin [Coumadin] 5 mg PO SUMOTUWEFRSA 01/25/16 12/26/18 History Baclofen 10 mg PO TID 01/22/17 12/26/18 History Albuterol Inhaler [Ventolin Hfa 1 - 2 puff INHALATION RT-Q6H PRN 06/26/18 12/26/18 History Inhaler] Budesonide/Formoterol Fumarate 2 puff INHALATION RT-BID 06/26/18 12/26/18 History [Symbicort 80-4.5 Mcg Inhaler] Calcium Carbonate [Calcium] 1,200 mg PO DAILY 06/26/18 12/26/18 History Cholecalciferol [Vitamin D3 (25 1,000 unit PO DAILY 06/26/18 12/26/18 History Mcg = 1000 Iu)] Cyanocobalamin (Vitamin B-12) 6,000 mcg PO DAILY 06/26/18 12/26/18 History [Vitamin B-12] Gabapentin [Neurontin] 300 mg PO BID 06/26/18 12/26/18 History Insulin Lispro [humaLOG Kwikpen] See Protocol SQ AC-TID PRN 06/26/18 12/26/18 History Melatonin 20 mg PO HS 06/26/18 12/26/18 History Turmeric Root Extract [Turmeric] 500 mg PO DAILY 06/26/18 12/26/18 History Zinc 50 mg PO DAILY 06/26/18 12/26/18 History hydrOXYzine PAMOATE [Vistaril] 50 mg PO QID PRN MDD TAKES WITH 06/26/18 12/26/18 History PERCOCET oxyCODONE-APAP 10-325MG [Percocet 1 tab PO QID PRN 06/26/18 12/26/18 History 10-325 mg] Celecoxib [CeleBREX] 200 mg PO DAILY 07/05/18 12/26/18 History Insulin Detemir (Levemir) [Levemir] 20 unit SQ PC-SUPPER 09/07/18 12/26/18 History Pantoprazole [Protonix] 40 mg PO AC-BRKFST #30 tablet. 09/08/18 12/26/18 Rx Nitrofurantoin Monohyd/M-Cryst 100 mg PO Q12HR 12/20/18 12/26/18 History [Macrobid] Nitroglycerin Sl Tabs [Nitrostat] 0.4 mg SUBLINGUAL Q5M PRN 12/20/18 12/26/18 History Allergies Allergy/AdvReac Type Severity Reaction Status Date / Time acetaminophen [From Tylenol] Allergy Itching Verified 12/26/18 17:11 adhesive tape Allergy Swelling Verified 12/26/18 17:11 cephalexin [From Keflex] Allergy Swelling Verified 12/26/18 17:11 levofloxacin [From Levaquin] Allergy Dyspnea Verified 12/26/18 17:11 morphine Allergy Itching Verified 12/26/18 17:11 sulfamethoxazole Allergy Dyspnea Verified 12/26/18 17:11 [From Bactrim] trimethoprim [From Bactrim] Allergy Dyspnea Verified 12/26/18 17:11 lisinopril AdvReac Cough Verified 12/26/18 17:11 bandaid Allergy Itching Uncoded 12/26/18 17:11 tegraderm Allergy blisters Uncoded 12/26/18 17:11 Physical Exam Vitals: Vital Signs Temp Pulse Pulse Pulse Resp BP BP 12/27/18 08:10 12/27/18 06:39 98.3 F 86 19 126/72 12/27/18 00:14 98.6 F 87 15 139/78 12/26/18 19:30 70 158/72 12/26/18 19:15 74 144/77 12/26/18 19:00 75 141/65 12/26/18 18:45 79 163/92 12/26/18 18:30 75 162/83 12/26/18 18:15 83 148/94 12/26/18 18:00 98.4 F 77 16 168/71 12/26/18 17:45 73 16 140/64 12/26/18 17:30 71 16 151/67 12/26/18 17:15 73 18 152/70 12/26/18 17:00 71 18 178/82 12/26/18 16:45 71 18 160/95 12/26/18 16:30 97.1 F L 70 18 167/74 12/26/18 11:38 96.7 F L 71 16 155/70 Pulse Ox 12/27/18 08:10 97 12/27/18 06:39 96 12/27/18 00:14 98 12/26/18 19:30 12/26/18 19:15 12/26/18 19:00 12/26/18 18:45 12/26/18 18:30 12/26/18 18:15 12/26/18 18:00 98 12/26/18 17:45 98 12/26/18 17:30 98 12/26/18 17:15 99 12/26/18 17:00 100 12/26/18 16:45 100 12/26/18 16:30 100 12/26/18 11:38 95 Intake and Output 12/26/18 12/27/18 12/27/18 22:59 06:59 14:59 Intake Total 540 750 Output Total 1350 400 Balance -810 350 Intake: IV 300 Intake, IV Titration 750 Amount Sodium Chloride 0.9% 1, 750 000 ml @ 75 mls/hr IV . [id number] Rx#:[id number] Oral 240 Output: Urine 1100 400 Estimated Blood Loss 250 Other: Voiding Method Indwelling Catheter Gen: This is a 68-year-old female. She is resting in bed and appears to be comfortable and in no acute distress. HEENT: Head is atraumatic, normocephalic. Pupils equal, round. Sclerae is anicteric. NECK: Supple. No JVD. No lymphadenopathy. No thyromegaly. LUNGS: Clear to auscultation. No wheezes or rhonchi. No intercostal retracti ons. HEART: Regular rate and rhythm. No murmur. ABDOMEN: Soft. Bowel sounds are present. No masses. No tenderness. EXTREMITIES: No pedal edema. No calf tenderness. NEUROLOGICAL: Patient is awake, alert and oriented x3. Cranial nerves 2 through 12 are grossly intact. Results CBC & Chem 7: 12/27/18 06:25 12/27/18 06:25 Labs: Abnormal Lab Results - Last 24 Hours (Table) 12/26/18 12/26/18 12/26/18 Range/Units 11:39 17:08 20:50 WBC (3.8-10.6) k/uL RBC (3.80-5.40) m/uL Hgb (11.4-16.0) gm/dL Neutrophils # (1.3-7.7) k/uL Carbon Dioxide (22-30) mmol/L Glucose (74-99) mg/dL POC Glucose (mg/dL) 163 H 171 H 176 H (75-99) mg/dL 12/27/18 12/27/1812/27/19 Range/Units 06:25 06:25 07:13 WBC 11.7 H (3.8-10.6) k/uL RBC 3.78 L (3.80-5.40) m/uL Hgb 11.3 L (11.4-16.0) gm/dL Neutrophils # 9.5 H (1.3-7.7) k/uL Carbon Dioxide 31 H (22-30) mmol/L Glucose 166 H (74-99) mg/dL POC Glucose (mg/dL) 173 H (75-99) mg/dL Assessment and Plan Plan: 1. Degenerative scoliosis and severe spinal stenosis, degenerative disc disease status post lumbar surgical intervention. Patient is postop day #1. She has had no postop complications. She has done well with physical therapy. Continue current pain management. Continue incentive spirometry to reduce incidence of atelectasis and hospital acquired pneumonia. Continue gabapentin 300 mg twice daily, baclofen 10 mg 3 times daily 2. Paroxysmal atrial fibrillation. Continue Coumadin, atenolol 25 mg daily. 3. History of DVT bilateral lower extremities. Continue Coumadin. 4. Diabetes mellitus type 2, insulin requiring. Insulin will be decreased to 10 units and continue NovoLog scale. If patient is eating well and blood sugars are stable, insulin may be increased back to her home dose of 20 units. 5. COPD, stable without exacerbation. Continue albuterol nebulizer treatment every 6 hours as needed, Symbicort twice daily. 6. Hypertension. Continue atenolol. 7. Hyperlipidemia. Continue simvastatin 40 mg at bedtime. 8. Seasonal ALLERGIES. Continue Flonase 9. Hypothyroidism. Continue levothyroxine 75 g daily. 10. Gastroesophageal reflux disease. Continue Protonix. 11. DVT prophylaxis. Continue Coumadin. Discharge plan: Return home possibly by Monday. Impression and plan of care have been directed as dictated by the signing physician. Mae Patton nurse practitioner acting as scribe for signing physician.
[2018-12-27 17:19] LABS: Glucose,Whole Blood 161 mg/dL (75-99)
[2018-12-27 17:33] LABS: Hemoglobin A1C 7.5 % (4.0-6.0)
[2018-12-27] MEDS ORDERED: WARFARIN 7.5 MG TAB PO ONE (18:00)
[2018-12-27] MEDS: INSULIN DETEMIR (LEVEMIR) 100 UNIT/ML SYR SQ SCH ×2 (18:43→19:39)
[2018-12-27] MEDS: ATORVASTATIN 20 MG TAB PO SCH (20:27)
[2018-12-27 21:00] LABS: Glucose,Whole Blood 163 mg/dL (75-99)
[2018-12-28] MEDS: HYDROmorphone 1 MG/ML 1 ML SYRINGE IVP PRN (04:27)
[2018-12-28] MEDS: oxyCODONE-APAP 10-325MG 1 EACH TAB PO PRN ×4 (05:29→20:09)
[2018-12-28] MEDS: LEVOTHYROXINE 75 MCG TAB PO SCH (05:29)
[2018-12-28] MEDS: LACTATED RINGERS 1,000 ML IV SCH (06:18)
[2018-12-28 06:52] LABS: Glucose,Whole Blood 176 mg/dL (75-99)
[2018-12-28] MEDS: INSULIN ASPART (NovoLOG) 100 UNIT/ML VIAL SQ SCH ×3 (07:28→17:07)
[2018-12-28] MEDS: CYANOCOBALAMIN 500 MCG TAB PO SCH (07:29)
[2018-12-28] MEDS: SENNOSIDES-DOCUSATE SODIUM 1 EACH TAB PO SCH (07:31)
[2018-12-28] MEDS: CHOLECALCIFEROL 1,000 UNIT TAB PO SCH (07:31)
[2018-12-28] MEDS: lamoTRIgine 100 MG TAB PO SCH (07:31)
[2018-12-28] MEDS: BACLOFEN 10 MG TAB PO SCH ×3 (07:32→20:07)
[2018-12-28] MEDS: CITALOPRAM HYDROBROMIDE 20 MG TAB PO SCH (07:32)
[2018-12-28] MEDS: ZINC SULFATE 220 MG CAP PO SCH (07:32)
[2018-12-28] MEDS: ATENOLOL 25 MG TAB PO SCH (07:33)
[2018-12-28] MEDS: FLUTICASONE 50MCG/SPRAY NASAL 16GM NASAL SCH (07:33)
[2018-12-28] MEDS: GABAPENTIN 300 MG CAP PO SCH ×2 (07:33→20:07)
[2018-12-28] MEDS: CALCIUM CARBONATE 500 MG CHEWABLE PO SCH (07:34)
[2018-12-28] MEDS: SODIUM CHLORIDE 0.9% 1,000 ML IV SCH ×2 (07:34→21:29)
[2018-12-28] MEDS: PANTOPRAZOLE 40 MG TABLET PO SCH (07:34)
[2018-12-28] MEDS: ALBUTEROL NEBULIZED 2.5 MG/3 ML INHALATION PRN ×3 (07:48→20:47)
[2018-12-28] MEDS: SYMBICORT 80-4.5 MCG INHALER INHALATION SCH ×2 (07:48→20:47)
--- NOTE | 2018-12-28 07:53 | P.PN ---
Progress Note - Text Progress Note Date: 12/28/18 Postoperative day #2 Patient is seen and examined today at bedside. The patient has some pain around the surgical site as expected. Pain is being controlled with medication. She has been able to ambulate and has been able to void freely. She is tolerating her diet adequately. She says she gets shortness breath when she lays down which haven't severe regularly at home as well. Physical Exam Afebrile with stable vital signs. She is on 2% is a cannula Abdomen is soft nontender. Chest has good excursion deep and space expiration The incision site is clean dry and intact. No erythema there is no purulence. Extremities have not had neurologic change from prior to surgery. She has s ustained dorsal flexion plantarflexion and EHL intact. Calves and thighs were soft nontender without evidence of DVT. Assessment/Plan Postoperative day #2 status post Garcia base of decompression and fusion L3 4 L4 5 for her severe spinal stenosis with degenerative scoliosis and lower extremity radiculopathy. The patient feels she has made improvement particularly in her legs with her surgery. She still having trouble chaining positions and getting out of bed on her own but she is making good progress with this Patient is progressing as expected from the surgery. Her breathing issues were present prior to her surgery but we will continue to monitor this closely. We will continue to increase the patient's mobilization with therapy. We will continue pain control with oral or IV medications. We'll continue to follow patient closely.
[2018-12-28 09:31] LABS: INR 1.3 (<1.2); Prothrombin Time 13.1 sec (9.0-12.0)
[2018-12-28] MEDS: hydrOXYzine PAMOATE 25 MG CAP PO PRN ×2 (10:33→20:09)
--- NOTE | 2018-12-28 11:11 | XR ---
EXAMINATION TYPE: XR chest 2V DATE OF EXAM: 12/28/2018 COMPARISON: 11/23/2018 HISTORY: History of sarcoidosis and COPD TECHNIQUE: Frontal and lateral views of the chest are obtained. FINDINGS: There is chronic left hemidiaphragm elevation and chronic left basilar atelectasis. New ri ght basilar atelectasis is seen. Cardiomediastinal silhouette is enlarged. Overall low lung volumes. Osseous structures are grossly intact. Hilar prominence is stable from the prior. IMPRESSION: 1. Stable chronic left hemidiaphragm elevation and left basilar atelectasis. New right basilar atelec tasis and overall lung lung volumes. 2. Hilar prominence is unchanged although adenopathy is considered in this patient with known sarcoid osis.
[2018-12-28 11:14] LABS: Glucose,Whole Blood 183 mg/dL (75-99)
--- NOTE | 2018-12-28 13:00 | P.PN ---
Subjective Progress Note Date: 12/28/18 This is a 68-year-old female patient of Dr. Early with past medical history of COPD, hypertension, hyperlipidemia, seasonal ALLERGIES, diabetes mellitus type 2 insulin requiring, hypothyroidism, gastroesophageal reflux disease, DVT and paroxysmal atrial fibrillation on chronic Coumadin. She denies any history of stroke. Patient has been brought into the hospital in the care of Dr. Zhang status post decompression, laminectomy, fusion the lumbar spine. Patient is history that she was essentially unable to care for herself the past 2 years and daughter and son-in-law were taking care of her. Patient underwent surgery yesterday. She has had no postop complications. Patient states that sh e is weak feeling well. She stated at the bedside and walk to the bathroom today and also sat in the chair. Patient denies any chest pain, palpitations, shortness of breath, abdominal pain, nausea, vomiting, dysuria. Patient did not eat very much today and Levemir will be decreased until we know she is eating adequately to maintain good blood sugar control. 12/28: Patient is complaining of some shortness of breath more than her baseline and gives history that she has been diagnosed with sarcoidosis and COPD secondary to some secondhand smoke from her . She complains of increased shortness of breath with activity. No lower extremity edema. Pulse ox is 98% on 2 L. Chest x-ray reveals stable chronic left analy-diaphragm elevation and left basilar atelectasis. New right basilar atelectasis and overall low lung volumes. Hilar prominence is unchanged although adenopathy is considered in this patient with known sarcoidosis. Patient is on Ventolin nebulizer treatments and Symbicort twice daily. Patient encouraged to use incentive spirometry. IV fluids have been discontinued. Blood sugars running between 161 and 183 and Levemir will be increased to 20 units which is her home dose. Anticipate probable discharge over the weekend. Objective - Vital Signs Vital signs: Vital Signs Temp 99.0 F 12/28/18 06:49 Pulse 92 12/28/18 08:06 Resp 18 12/28/18 06:49 BP 133/67 12/28/18 06:49 Pulse Ox 98 12/28/18 07:51 Intake & Output 12/27/18 12/28/18 12/28/18 18:59 06:59 18:59 Intake Total 240 1080 Balance 240 1080 Intake: Oral 240 1080 Other: Voiding Method Toilet # Voids 2 2 - Exam Review of Systems Constitutional: Denies chills, Denies fatigue, Denies fever, Denies lethargy, Denies malaise, Denies poor appetite, Denies weight loss Eyes: denies blurred vision, denies pain Ears, nose, mouth and throat: Denies dysphagia, Denies headache, Denies nasal congestion, Denies nasal discharge, Denies sore throat, Denies vertigo Cardiovascular: Denies chest pain, Denies edema, Denies leg edema, Denies l ightheadedness, reports shortness of breath, Denies syncope Respiratory: Denies cough, Denies cough with sputum, Denies dyspnea, Denies excessive sputum, Denies hemoptysis, Denies home oxygen, Denies snoring Gastrointestinal: Denies abdominal pain, Denies diarrhea, Denies loss of appetite, Denies nausea, Denies vomiting Genitourinary: Denies dysuria, Denies hematuria Musculoskeletal: Denies frequent falls, Denies myalgias Integumentary: Reports wounds, Denies pruritus, Denies rash Neurological: Denies change in mentation, Denies change in speech, Denies numbness, Denies seizures, Denies weakness Psychiatric: Denies anxiety, Denies depression Endocrine: Denies fatigue, Denies weight change Gen: This is a 68-year-old female. She is resting in bed and appears to be comfortable and in no acute distress. HEENT: Head is atraumatic, normocephalic. Pupils equal, round. Sclerae is an icteric. NECK: Supple. No JVD. No lymphadenopathy. No thyromegaly. LUNGS: Diminished bilateral bases. No wheezes or rhonchi. No intercostal retractions. HEART: Regular rate and rhythm. No murmur. ABDOMEN: Soft. Bowel sounds are present. No masses. No tenderness. EXTREMITIES: No pedal edema. No calf tenderness. NEUROLOGICAL: Patient is awake, alert and oriented x3. Cranial nerves 2 through 12 are grossly intact. - Labs CBC & Chem 7: 12/27/18 06:25 12/27/18 06:25 Labs: Abnormal Lab Results - Last 24 Hours (Table) 12/27/18 12/27/18 12/27/18 Range/Units 06:25 11:18 17:06 POC Glucose (mg/dL) 204 H 161 H (75-99) mg/dL Hemoglobin A1c 7.5 H (4.0-6.0) % 12/27/18 12/28/18 Range/Units 20:47 06:50 POC Glucose (mg/dL) 163 H 176 H (75-99) mg/dL Hemoglobin A1c (4.0-6.0) % Assessment and Plan Plan: 1. Degenerative scoliosis and severe spinal stenosis, degenerative disc disease status post lumbar surgical intervention. Patient is postop day #2. She has had no postop complications. She has done well with physical therapy. Continue current pain management. Continue incentive spirometry to reduce incidence of atelectasis and hospital acquired pneumonia. Continue gabapentin 300 mg twice daily, baclofen 10 mg 3 times daily 2. Paroxysmal atrial fibrillation. Continue Coumadin, atenolol 25 mg daily. 3. History of DVT bilateral lower extremities. Continue Coumadin. 4. Diabetes mellitus type 2, insulin requiring. Insulin will be decreased to 10 units and continue NovoLog scale. If patient is eating well and blood sugars are stable, insulin may be increased back to her home dose of 20 units. 5. COPD, stable without exacerbation. Continue albuterol nebulizer treatment every 6 hours as needed, Symbicort twice daily. 6. Hypertension. Continue atenolol. 7. Hyperlipidemia. Continue simvastatin 40 mg at bedtime. 8. Seasonal ALLERGIES. Continue Flonase 9. Hypothyroidism. Continue levothyroxine 75 g daily. 10. Gastroesophageal reflux disease. Continue Protonix. 11. DVT prophylaxis. Continue Coumadin. 12. Sarcoidosis and COPD. Continue Ventolin nebulizer every 6 hours as needed, Symbicort 2 puffs twice daily. Encourage use of incentive spirometry. Discharge plan: Return home possibly by Monday. Impression and plan of care have been directed as dictated by the signing physician. Mae Patton nurse practitioner acting as scribe for signing physician.
[2018-12-28 16:59] LABS: Glucose,Whole Blood 184 mg/dL (75-99)
[2018-12-28] MEDS ORDERED: WARFARIN 5 MG TAB PO ONE (18:00)
[2018-12-28] MEDS: INSULIN DETEMIR (LEVEMIR) 100 UNIT/ML SYR SQ SCH (19:09)
[2018-12-28] MEDS: ATORVASTATIN 20 MG TAB PO SCH (20:07)
[2018-12-28 20:16] LABS: Glucose,Whole Blood 199 mg/dL (75-99)
[2018-12-29] MEDS: oxyCODONE-APAP 10-325MG 1 EACH TAB PO PRN ×5 (00:23→17:03)
[2018-12-29] MEDS: LEVOTHYROXINE 75 MCG TAB PO SCH (05:30)
[2018-12-29] MEDS: hydrOXYzine PAMOATE 25 MG CAP PO PRN ×2 (05:30→12:35)
--- NOTE | 2018-12-29 06:58 | P.PN ---
Progress Note - Text Progress Note Date: 12/29/18 Postoperative day #3 Patient is seen and examined today at bedside. The patient has some pain around the surgical site as expected. She is trying to transition from the IV to oral pain medications and is having some trouble with this. She was on Percocet 3 or 4 times a day prior to her surgery and I think this is making the pain control somewhat difficult. She denies any nausea or vomiting. She is having some soreness at her anterior thighs and muscle spasms which is relieved with heat. Physical Exam Afebrile with stable vital signs Abdomen is soft nontender. Chest has good excursion deep and space expiration The incision site is clean dry and intact. No erythema there is no purulence. Extremities have not had neurologic change from prior to surgery. Her thighs are nontender to palpation just her thighs Soft nontender. She has good 5 out of 5 strength for/plan flexion and EHL hip flexion and knee extension. Calves and thighs were soft nontender without evidence of DVT. Assessment/Plan Postoperative day #3 status post decompression and fusion L34 L4 5 for severe spinal stenosis with radiculopathy Patient is progressing as expected from the surgery. Her pain control transitioned from IV to oral's is been somewhat difficult for her. She does take significant amount of oral pain medications at home prior to her surgery and I think this is contributing to the difficulty with her pain control. The hospital. She is overall making good progress with her mobility and her strength remains intact. We will continue to try to transition her over to oral medications and hopefully she'll be okay for discharge home tomorrow We will continue to increase the patient's mobilization with therapy. We will continue pain control with oral or IV medications. We'll continue to follow patient closely.
[2018-12-29 07:05] LABS: Glucose,Whole Blood 139 mg/dL (75-99)
[2018-12-29] MEDS: CALCIUM CARBONATE 500 MG CHEWABLE PO SCH (07:50)
[2018-12-29] MEDS: BACLOFEN 10 MG TAB PO SCH ×3 (07:50→20:39)
[2018-12-29] MEDS: PANTOPRAZOLE 40 MG TABLET PO SCH (07:50)
[2018-12-29] MEDS: GABAPENTIN 300 MG CAP PO SCH ×2 (07:50→20:39)
[2018-12-29] MEDS: lamoTRIgine 100 MG TAB PO SCH (07:51)
[2018-12-29] MEDS: ATENOLOL 25 MG TAB PO SCH (07:51)
[2018-12-29] MEDS: SENNOSIDES-DOCUSATE SODIUM 1 EACH TAB PO SCH (07:51)
[2018-12-29] MEDS: CITALOPRAM HYDROBROMIDE 20 MG TAB PO SCH (07:51)
[2018-12-29] MEDS: FLUTICASONE 50MCG/SPRAY NASAL 16GM NASAL SCH (07:52)
[2018-12-29] MEDS: ZINC SULFATE 220 MG CAP PO SCH (07:52)
[2018-12-29] MEDS: CHOLECALCIFEROL 1,000 UNIT TAB PO SCH (07:52)
[2018-12-29] MEDS: CYANOCOBALAMIN 500 MCG TAB PO SCH (07:54)
[2018-12-29] MEDS: INSULIN ASPART (NovoLOG) 100 UNIT/ML VIAL SQ SCH ×3 (07:55→17:03)
[2018-12-29 08:09] LABS: INR 1.4 (<1.2); Prothrombin Time 14.3 sec (9.0-12.0)
[2018-12-29] MEDS: ALBUTEROL NEBULIZED 2.5 MG/3 ML INHALATION PRN ×2 (08:46→20:47)
[2018-12-29] MEDS: SYMBICORT 80-4.5 MCG INHALER INHALATION SCH ×2 (08:46→20:47)
--- NOTE | 2018-12-29 12:21 | P.PN ---
Subjective Progress Note Date: 12/29/18 This is a 68-year-old female patient of Dr. Early with past medical history of COPD, hypertension, hyperlipidemia, seasonal ALLERGIES, diabetes mellitus type 2 insulin requiring, hypothyroidism, gastroesophageal reflux disease, DVT and paroxysmal atrial fibrillation on chronic Coumadin. She denies any history of stroke. Patient has been brought into the hospital in the care of Dr. Zhang status post decompression, laminectomy, fusion the lumbar spine. Patient is history that she was essentially unable to care for herself the past 2 years and daughter and son-in-law were taking care of her. Patient underwent surgery yesterday. She has had no postop complications. Patient states that sh e is weak feeling well. She stated at the bedside and walk to the bathroom today and also sat in the chair. Patient denies any chest pain, palpitations, shortness of breath, abdominal pain, nausea, vomiting, dysuria. Patient did not eat very much today and Levemir will be decreased until we know she is eating adequately to maintain good blood sugar control. 12/28: Patient is complaining of some shortness of breath more than her baseline and gives history that she has been diagnosed with sarcoidosis and COPD secondary to some secondhand smoke from her . She complains of increased shortness of breath with activity. No lower extremity edema. Pulse ox is 98% on 2 L. Chest x-ray reveals stable chronic left analy-diaphragm elevation and left basilar atelectasis. New right basilar atelectasis and overall low lung volumes. Hilar prominence is unchanged although adenopathy is considered in this patient with known sarcoidosis. Patient is on Ventolin nebulizer treatments and Symbicort twice daily. Patient encouraged to use incentive spirometry. IV fluids have been discontinued. Blood sugars running between 161 and 183 and Levemir will be increased to 20 units which is her home dose. Anticipate probable discharge over the weekend. 12/29: Patient has been afebrile, heart rate 88, blood pressure 135/72, pulse ox 91-92% on room air. INR is 1.4. The patient was checked with ambulation and pulse ox dropped down to 86%. Home oxygen prescription has been left on the chart with anticipation that she will be ready for discharge tomorrow. Dr. Zhang has changed her IV medications for pain to oral. Patient states her breathing is at her baseline. She does not feel increased shortness of breath today. She is complaining of sweating. Blood sugars are running between 139 a nd 199. Patient states she is using her incentive spirometry. Objective - Vital Signs Vital signs: Vital Signs Temp 98.7 F 12/29/18 07:00 Pulse 84 12/29/18 08:59 Resp 16 12/29/18 07:00 BP 135/72 12/29/18 07:00 Pulse Ox 91 L 12/29/18 07:00 Intake & Output 12/28/18 12/29/18 12/29/18 18:59 06:59 18:59 Intake Total 358 300 Balance 358 300 Intake: Oral 358 300 Other: # Voids 2 2 - Exam Review of Systems Constitutional: Denies chills, reports sweats Denies fatigue, Denies fever, Denies lethargy, Denies malaise, Denies poor appetite, Denies weight loss Eyes: denies blurred vision, denies pain Ears, nose, mouth and throat: Denies dysphagia, Denies headache, Denies nasal congestion, Denies nasal discharge, Denies sore throat, Denies vertigo Cardiovascular: Denies chest pain, Denies edema, Denies leg edema, Denies lightheadedness, reports shortness of breath, Denies syncope Respiratory: Denies cough, Denies cough with sputum, Denies dyspnea, Denies excessive sputum, Denies hemoptysis, Denies home oxygen, Denies snoring Gastrointestinal: Denies abdominal pain, Denies diarrhea, Denies loss of appetite, Denies nausea, Denies vomiting Genitourinary: Denies dysuria, Denies hematuria Musculoskeletal: Denies frequent falls, Denies myalgias Integumentary: Reports wounds, Denies pruritus, Denies rash Neurological: Denies change in mentation, Denies change in speech, Denies numbness, Denies seizures, Denies weakness Psychiatric: Denies anxiety, Denies depression Endocrine: Denies fatigue, Denies weight change Gen: This is a 68-year-old female. She is resting in bed and appears to be comfortable and in no acute distress. HEENT: Head is atraumatic, normocephalic. Pupils equal, round. Sclerae is anicteric. NECK: Supple. No JVD. No lymphadenopathy. No thyromegaly. LUNGS: Clear to auscultation No wheezes or rhonchi. No intercostal retractions. HEART: Regular rate and rhythm. No murmur. ABDOMEN: Soft. Bowel sounds are present. No masses. No tenderness. EXTREMITIES: No pedal edema. No calf tenderness. NEUROLOGICAL: Patient is awake, alert and oriented x3. Cranial nerves 2 through 12 are grossly intact. - Labs CBC & Chem 7: 12/27/18 06:25 12/27/18 06:25 Labs: Abnormal Lab Results - Last 24 Hours (Table) 12/28/18 12/28/18 12/28/18 Range/Units 07:41 11:14 16:57 PT 13.1 H (9.0-12.0) sec INR 1.3 H (<1.2) POC Glucose (mg/dL) 183 H 184 H (75-99) mg/dL 12/28/18 12/29/18 12/29/18 Range/Units 20:04 06:59 07:23 PT 14.3 H (9.0-12.0) sec INR 1.4 H (<1.2) POC Glucose (mg/dL) 199 H 139 H (75-99) mg/dL Assessment and Plan Plan: 1. Degenerative scoliosis and severe spinal stenosis, degenerative disc disease status post lumbar surgical intervention. Patient is postop day #3. She has had no postop complications. She has done well with physical therapy. Continue current pain management. Continue incentive spirometry to reduce incidence of atelectasis and hospital acquired pneumonia. Continue gabapentin 300 mg twice daily, baclofen 10 mg 3 times daily. Orthopedics is transitioning patient to oral pain medications 2. Paroxysmal atrial fibrillation. Continue Coumadin, atenolol 25 mg daily. INR 1.4. Pharmacy is dosing Coumadin. 3. History of DVT bilateral lower extremities. Continue Coumadin. 4. Diabetes mellitus type 2, insulin requiring. Continue Levemir 20 units daily and NovoLog scale. 5. COPD, stable without exacerbation. Continue albuterol nebulizer treatment every 6 hours as needed, Symbicort twice daily. 6. Hypertension. Continue atenolol. 7. Hyperlipidemia. Continue simvastatin 40 mg at bedtime. 8. Seasonal ALLERGIES. Continue Flonase 9. Hypothyroidism. Continue levothyroxine 75 g daily. 10. Gastroesophageal reflux disease. Continue Protonix. 11. DVT prophylaxis. Continue Coumadin. 12. Sarcoidosis and COPD. Continue Ventolin nebulizer every 6 hours as needed, Symbicort 2 puffs twice daily. Encourage use of incentive spirometry. 13. Chronic hypoxic respiratory failure. Pulse ox is 86% on room air with ambulation. Patient will be set up with home oxygen prior to discharge. Discharge plan: Return home possibly by Monday. Impression and plan of care have been directed as dictated by the signing physician. Mae Patton nurse practitioner acting as scribe for signing physician.
[2018-12-29 12:32] LABS: Glucose,Whole Blood 189 mg/dL (75-99)
[2018-12-29 16:55] LABS: Glucose,Whole Blood 199 mg/dL (75-99)
[2018-12-29] MEDS ORDERED: WARFARIN 5 MG TAB PO ONE (18:00)
[2018-12-29] MEDS: INSULIN DETEMIR (LEVEMIR) 100 UNIT/ML SYR SQ SCH (18:05)
[2018-12-29] MEDS: ATORVASTATIN 20 MG TAB PO SCH (20:39)
[2018-12-29 20:55] LABS: Glucose,Whole Blood 196 mg/dL (75-99)
[2018-12-30] MEDS: oxyCODONE-APAP 10-325MG 1 EACH TAB PO PRN ×3 (00:38→11:53)
[2018-12-30] MEDS: hydrOXYzine PAMOATE 25 MG CAP PO PRN ×2 (00:39→11:52)
[2018-12-30] MEDS: LEVOTHYROXINE 75 MCG TAB PO SCH (06:10)
[2018-12-30 06:55] LABS: Glucose,Whole Blood 116 mg/dL (75-99)
[2018-12-30] MEDS: INSULIN ASPART (NovoLOG) 100 UNIT/ML VIAL SQ SCH ×2 (06:59→12:34)
[2018-12-30] MEDS: CYANOCOBALAMIN 500 MCG TAB PO SCH (07:49)
[2018-12-30] MEDS: BACLOFEN 10 MG TAB PO SCH (07:50)
[2018-12-30] MEDS: CHOLECALCIFEROL 1,000 UNIT TAB PO SCH (07:50)
[2018-12-30] MEDS: GABAPENTIN 300 MG CAP PO SCH (07:50)
[2018-12-30] MEDS: PANTOPRAZOLE 40 MG TABLET PO SCH (07:50)
[2018-12-30] MEDS: CALCIUM CARBONATE 500 MG CHEWABLE PO SCH (07:50)
[2018-12-30] MEDS: lamoTRIgine 100 MG TAB PO SCH (07:50)
[2018-12-30] MEDS: SENNOSIDES-DOCUSATE SODIUM 1 EACH TAB PO SCH (07:50)
[2018-12-30] MEDS: CITALOPRAM HYDROBROMIDE 20 MG TAB PO SCH (07:50)
[2018-12-30] MEDS: ATENOLOL 25 MG TAB PO SCH (07:50)
[2018-12-30] MEDS: ZINC SULFATE 220 MG CAP PO SCH (07:51)
[2018-12-30] MEDS: FLUTICASONE 50MCG/SPRAY NASAL 16GM NASAL SCH (07:54)
[2018-12-30 08:13] LABS: INR 1.9 (<1.2)
[2018-12-30 08:14] LABS: Prothrombin Time 18.5 sec (9.0-12.0)
[2018-12-30 08:26] VITALS: BP 135/77; RESP 16; TEMP 98.1
[2018-12-30] MEDS: ALBUTEROL NEBULIZED 2.5 MG/3 ML INHALATION PRN ×2 (08:52→12:41)
[2018-12-30] MEDS: SYMBICORT 80-4.5 MCG INHALER INHALATION SCH (08:52)
--- NOTE | 2018-12-30 11:31 | P.PN ---
Subjective Progress Note Date: 12/30/18 This is a 68-year-old female patient of Dr. Early with past medical history of COPD, hypertension, hyperlipidemia, seasonal ALLERGIES, diabetes mellitus type 2 insulin requiring, hypothyroidism, gastroesophageal reflux disease, DVT and paroxysmal atrial fibrillation on chronic Coumadin. She denies any history of stroke. Patient has been brought into the hospital in the care of Dr. Zhang status post decompression, laminectomy, fusion the lumbar spine. Patient is history that she was essentially unable to care for herself the past 2 years and daughter and son-in-law were taking care of her. Patient underwent surgery yesterday. She has had no postop complications. Patient states that sh e is weak feeling well. She stated at the bedside and walk to the bathroom today and also sat in the chair. Patient denies any chest pain, palpitations, shortness of breath, abdominal pain, nausea, vomiting, dysuria. Patient did not eat very much today and Levemir will be decreased until we know she is eating adequately to maintain good blood sugar control. 12/28: Patient is complaining of some shortness of breath more than her baseline and gives history that she has been diagnosed with sarcoidosis and COPD secondary to some secondhand smoke from her . She complains of increased shortness of breath with activity. No lower extremity edema. Pulse ox is 98% on 2 L. Chest x-ray reveals stable chronic left analy-diaphragm elevation and left basilar atelectasis. New right basilar atelectasis and overall low lung volumes. Hilar prominence is unchanged although adenopathy is considered in this patient with known sarcoidosis. Patient is on Ventolin nebulizer treatments and Symbicort twice daily. Patient encouraged to use incentive spirometry. IV fluids have been discontinued. Blood sugars running between 161 and 183 and Levemir will be increased to 20 units which is her home dose. Anticipate probable discharge over the weekend. 12/29: Patient has been afebrile, heart rate 88, blood pressure 135/72, pulse ox 91-92% on room air. INR is 1.4. The patient was checked with ambulation and pulse ox dropped down to 86%. Home oxygen prescription has been left on the chart with anticipation that she will be ready for discharge tomorrow. Dr. Zhang has changed her IV medications for pain to oral. Patient states her breathing is at her baseline. She does not feel increased shortness of breath today. She is complaining of sweating. Blood sugars are running between 139 a nd 199. Patient states she is using her incentive spirometry. 12/30: Patient is afebrile, heart rate 76, blood pressure 135/77, pulse ox 95% on 2 L nasal cannula. INR today is at 1.9. Blood sugar 116. Patient states that she is feeling better today. Her breathing is better. She is found sitting up in a chair. She states she is waiting for physical therapy to show her how to get in and out of a car. Her home oxygen has been delivered. Education reconciliation reviewed. Patient to resume her home dose of Coumadin.. Objective - Vital Signs Vital signs: Vital Signs Temp 98.1 F 12/30/18 07:00 Pulse 76 12/30/18 09:05 Resp 16 12/30/18 07:00 BP 135/77 12/30/18 07:00 Pulse Ox 95 12/30/18 07:00 Intake & Output 12/29/18 12/30/18 12/30/18 18:59 06:59 18:59 Intake Total 118 150 Balance 118 150 Intake: Oral 118 150 Other: Voiding Method Toilet Toilet # Voids 1 2 - Exam Review of Systems Constitutional: Denies chills, reports sweats Denies fatigue, Denies fever, Denies lethargy, Denies malaise, Denies poor appetite, Denies weight loss Eyes: denies blurred vision, denies pain Ears, nose, mouth and throat: Denies dysphagia, Denies headache, Denies nasal congestion, Denies nasal discharge, Denies sore throat, Denies vertigo Cardiovascular: Denies chest pain, Denies edema, Denies leg edema, Denies lightheadedness, reports shortness of breath, Denies syncope Respiratory: Denies cough, Denies cough with sputum, Denies dyspnea, Denies excessive sputum, Denies hemoptysis, Denies home oxygen, Denies snoring Gastrointestinal: Denies abdominal pain, Denies diarrhea, Denies loss of appetite, Denies nausea, Denies vomiting Genitourinary: Denies dysuria, Denies hematuria Musculoskeletal: Denies frequent falls, Denies myalgias Integumentary: Reports wounds, Denies pruritus, Denies rash Neurological: Denies change in mentation, Denies change in speech, Denies numbness, Denies seizures, Denies weakness Psychiatric: Denies anxiety, Denies depression Endocrine: Denies fatigue, Denies weight change Gen: This is a 68-year-old female. She is resting in chair and appears to be comfortable and in no acute distress. HEENT: Head is atraumatic, normocephalic. Pupils equal, round. Sclerae is anicteric. NECK: Supple. No JVD. No lymphadenopathy. No thyromegaly. LUNGS: Clear to auscultation No wheezes or rhonchi. No intercostal retractions. HEART: Regular rate and rhythm. No murmur. ABDOMEN: Soft. Bowel sounds are present. No masses. No tenderness. EXTREMITIES: No pedal edema. No calf tenderness. NEUROLOGICAL: Patient is awake, alert and oriented x3. Cranial nerves 2 through 12 are grossly intact. - Labs CBC & Chem 7: 12/27/18 06:25 12/27/18 06:25 Labs: Abnormal Lab Results - Last 24 Hours (Table) 12/29/18 12/29/18 12/29/18 Range/Units 12:28 16:52 20:42 PT (9.0-12.0) sec INR (<1.2) POC Glucose (mg/dL) 189 H 199 H 196 H (75-99) mg/dL 12/30/18 12/30/18 Range/Units 06:44 07:17 PT 18.5 H (9.0-12.0) sec INR 1.9 H (<1.2) POC Glucose (mg/dL) 116 H (75-99) mg/dL Assessment and Plan Plan: 1. Degenerative scoliosis and severe spinal stenosis, degenerative disc disease status post lumbar surgical intervention. Patient is postop day #3. She has had no postop complications. She has done well with physical therapy. Continue current pain management. Continue incentive spirometry to reduce incidence of atelectasis and hospital acquired pneumonia. Continue gabapentin 300 mg twice daily, baclofen 10 mg 3 times daily. Orthopedics is transitioning patient to oral pain medications 2. Paroxysmal atrial fibrillation. Continue Coumadin, atenolol 25 mg daily. INR 1.4. Pharmacy is dosing Coumadin. Patient will resume home dose of Coumadin. 3. History of DVT bilateral lower extremities. Continue Coumadin. 4. Diabetes mellitus type 2, insulin requiring. Continue Levemir 20 units daily and NovoLog scale. 5. COPD, stable without exacerbation. Continue albuterol nebulizer treatment every 6 hours as needed, Symbicort twice daily. 6. Hypertension. Continue atenolol. 7. Hyperlipidemia. Continue simvastatin 40 mg at bedtime. 8. Seasonal ALLERGIES. Continue Flonase 9. Hypothyroidism. Continue levothyroxine 75 g daily. 10. Gastroesophageal reflux disease. Continue Protonix. 11. DVT prophylaxis. Continue Coumadin. 12. Sarcoidosis and COPD. Continue Ventolin nebulizer every 6 hours as needed, Symbicort 2 puffs twice daily. Encourage use of incentive spirometry. 13. Chronic hypoxic respiratory failure. Pulse ox is 86% on room air with ambulation. Patient will be set up with home oxygen prior to discharge. Discharge plan: Return home. Impression and plan of care have been directed as dictated by the signing physician. Mae Patton nurse practitioner acting as scribe for signing physician.
[2018-12-30 11:58] LABS: Glucose,Whole Blood 137 mg/dL (75-99)
[2018-12-30 12:54] VITALS: PULSE 80
--- NOTE | 2018-12-30 13:41 | P.DS ---
Providers Date of admission: 12/26/18 11:08 Attending physician: Debra Zhang Consults: 12/26/18 16:30 Consult Physician Routine Consulting Provider: Juliana Ruth Consult Reason/Comments: Medical management Do you want consulting provider notified?: Yes Primary care physician: Stated None Hospital Course: The patient presented on the day of admission as per their operative note. She had severe spinal stenosis at L3 4 and L4 5 and underwent minimally invasive decompression and fusion as per her operative note. She has been making steady progress from her surgery. She is mobile in her room and tolerating a regular diet adequately. She is passing gas and voiding freely. Her pains been better controlled that she is converting over to oral medications. Physical Exam The incision site is clean dry and intact. There is no erythema no drainage. There is no purulence no evidence of infection. The incision site is clear her skin is doing fairly well around the area. Abdomen soft and nontender. Chest has good excursion with deep inspiration and expiration. The patient has active and passive range of motion intact at the upper and lower extremities. There is no acute change in neurologic status. She has sustained dorsal flexion plantar flexion and EHL intact. She is able to flex and extend at her hips appropriately. Hospital Course Postoperative day #4 status post minimally invasive decompression and fusion L3 4 L4 5 for her severe spinal stenosis with lower extremity radiculopathy The patient has been making good progress postoperatively. They have completed the prophylactic antibiotics without any signs or symptoms of infection. Her skin is unwell and the gluteus intact over her incision sites The patient has been able to advance their diet, and is tolerating diet adequately. The pain was initially controlled with IV medications and is now controlled appropriately with oral medications. She takes a number of medicines at home including Percocet which has been prescribed her by her primary care physician and she says she has significant supply at home. The patient has been able to increase their mobilization. The patient has progressed appropriately. I think they are in good stable condition for discharge today. They will be sent home with appropriate prescriptions. I answered their questions to the best of my ability in a language that they can understand and they are agreeable with the plan. They will follow up as directed in approximately 2 weeks or sooner if she's having problems. Patient Condition at Discharge: Good Plan - Discharge Summary Discharge Rx Participant: Yes New Discharge Prescriptions: New Benzocaine/Menthol Lozeng [Cepacol lozenge] 1 each MUCOUS MEM Q4HR PRN lozenge PRN Reason: Sore Throat Continue Simvastatin [Zocor] 40 mg PO HS lamoTRIgine [LaMICtal] 100 mg PO QAM Levothyroxine Sodium [Synthroid] 75 mcg PO DAILY Fluticasone Propionate [Flonase Allergy Relief] 2 spray EA NOSTRIL DAILY Warfarin [Coumadin] 5 mg PO SUMOTUWEFRSA Citalopram Hydrobromide [Citalopram HBr] 40 mg PO DAILY Atenolol [Tenormin] 25 mg PO DAILY Baclofen 10 mg PO TID oxyCODONE-APAP 10-325MG [Percocet 10-325 mg] 1 tab PO QID PRN PRN Reason: Pain Budesonide/Formoterol Fumarate [Symbicort 80-4.5 Mcg Inhaler] 2 puff INHALATION RT-BID hydrOXYzine PAMOATE [Vistaril] 50 mg PO QID PRN MDD TAKES WITH PERCOCET PRN Reason: Itching Cholecalciferol [Vitamin D3 (25 Mcg = 1000 Iu)] 1,000 unit PO DAILY Albuterol Inhaler [Ventolin Hfa Inhaler] 1 - 2 puff INHALATION RT-Q6H PRN PRN Reason: Shortness Of Breath Gabapentin [Neurontin] 300 mg PO BID Zinc 50 mg PO DAILY Turmeric Root Extract [Turmeric] 500 mg PO DAILY Melatonin 20 mg PO HS Cyanocobalamin (Vitamin B-12) [Vitamin B-12] 6,000 mcg PO DAILY Calcium Carbonate [Calcium] 1,200 mg PO DAILY Insulin Lispro [humaLOG Kwikpen] See Protocol SQ AC-TID PRN PRN Reason: Blood Sugar - High Celecoxib [CeleBREX] 200 mg PO DAILY Insulin Detemir (Levemir) [Levemir] 20 unit SQ PC-SUPPER Pantoprazole [Protonix] 40 mg PO AC-BRKFST #30 tablet. Nitroglycerin Sl Tabs [Nitrostat] 0.4 mg SUBLINGUAL Q5M PRN PRN Reason: Chest Pain Nitrofurantoin Monohyd/M-Cryst [Macrobid] 100 mg PO Q12HR Discharge Medication List Levothyroxine Sodium [Synthroid] 75 mcg PO DAILY 08/21/13 [History] Simvastatin [Zocor] 40 mg PO HS 08/21/13 [History] lamoTRIgine [LaMICtal] 100 mg PO QAM 08/21/13 [History] Atenolol [Tenormin] 25 mg PO DAILY 01/25/16 [History] Citalopram Hydrobromide [Citalopram HBr] 40 mg PO DAILY 01/25/16 [History] Fluticasone Propionate [Flonase Allergy Relief] 2 spray EA NOSTRIL DAILY 01/25/16 [History] Warfarin [Coumadin] 5 mg PO SUMOTUWEFRSA 01/25/16 [History] Baclofen 10 mg PO TID 01/22/17 [History] Albuterol Inhaler [Ventolin Hfa Inhaler] 1 - 2 puff INHALATION RT-Q6H PRN 06/26/18 [History] Budesonide/Formoterol Fumarate [Symbicort 80-4.5 Mcg Inhaler] 2 puff INHALATION RT-BID 06/26/18 [History] Calcium Carbonate [Calcium] 1,200 mg PO DAILY 06/26/18 [History] Cholecalciferol [Vitamin D3 (25 Mcg = 1000 Iu)] 1,000 unit PO DAILY 06/26/18 [History] Cyanocobalamin (Vitamin B-12) [Vitamin B-12] 6,000 mcg PO DAILY 06/26/18 [History] Gabapentin [Neurontin] 300 mg PO BID 06/26/18 [History] Insulin Lispro [humaLOG Kwikpen] See Protocol SQ AC-TID PRN 06/26/18 [History] Melatonin 20 mg PO HS 06/26/18 [History] Turmeric Root Extract [Turmeric] 500 mg PO DAILY 06/26/18 [History] Zinc 50 mg PO DAILY 06/26/18 [History] hydrOXYzine PAMOATE [Vistaril] 50 mg PO QID PRN MDD TAKES WITH PERCOCET 06/26/18 [History] oxyCODONE-APAP 10-325MG [Percocet 10-325 mg] 1 tab PO QID PRN 06/26/18 [History] Celecoxib [CeleBREX] 200 mg PO DAILY 07/05/18 [History] Insulin Detemir (Levemir) [Levemir] 20 unit SQ PC-SUPPER 09/07/18 [History] Pantoprazole [Protonix] 40 mg PO AC-BRKFST #30 tablet. 09/08/18 [Rx] Nitrofurantoin Monohyd/M-Cryst [Macrobid] 100 mg PO Q12HR 12/20/18 [History] Nitroglycerin Sl Tabs [Nitrostat] 0.4 mg SUBLINGUAL Q5M PRN 12/20/18 [History] Benzocaine/Menthol Lozeng [Cepacol lozenge] 1 each MUCOUS MEM Q4HR PRN lozenge 12/30/18 [Rx] Follow up Appointment(s)/Referral(s): Debra Zhang, [Doctor of Osteopathic Medicine] - 01/11/19 1:00 pm (With Balwinder Castellon) [employer] [NON-STAFF] - [facility], [NON-STAFF] - Activity/Diet/Wound Care/Special Instructions: Keep site clean. May shower with waterproof Tegaderm intact. Do not soak in a tub. After 72 hours postoperatively, patient May remove dressing and then may shower with area uncovered. Leave Steri-Strips intact and allow them to fray off on their own. May ambulate as tolerated. Avoid heavy or rigorous activity. No repetitive bending twisting or lifting. No overhead work. Patient states that she has oral pain medications from her primary care physician
[2018-12-30] MEDS ORDERED: WARFARIN 5 MG TAB PO SCH (18:00)
== END 2018-12-30 14:51 | disposition home health service (06) | DRG 454 ==
LOC: 2ORMAIN 12-26 11:08 → 4SSUR 12-26 17:05
PROVIDERS: ADMIT Orthopaedic Surgery Orthopaedic Surgery of the Spine; ATTEND Orthopaedic Surgery Orthopaedic Surgery of the Spine
PROC: 0SG1071 Fusion of 2 or more Lumbar Vertebral Joints with Autologous Tissue Substitute, Posterior Approach, Posterior Column, Open Approach (ICD-10-PCS; 2018-12-26)
PROC: 0ST20ZZ Resection of Lumbar Vertebral Disc, Open Approach (ICD-10-PCS; 2018-12-26)
PROC: 07DS3ZZ Extraction of Vertebral Bone Marrow, Percutaneous Approach (ICD-10-PCS; 2018-12-26)
PROC: 4A11X4G Monitoring of Peripheral Nervous Electrical Activity, Intraoperative, External Approach (ICD-10-PCS; 2018-12-26)
PROC: 30233N0 Transfusion of Autologous Red Blood Cells into Peripheral Vein, Percutaneous Approach (ICD-10-PCS; 2018-12-26)
PROC: 0SG10AJ Fusion of 2 or more Lumbar Vertebral Joints with Interbody Fusion Device, Posterior Approach, Anterior Column, Open Approach (ICD-10-PCS; principal; 2018-12-26 12:45)
DX: M48.062 Spinal stenosis, lumbar region with neurogenic claudication (principal); J98.11 Atelectasis; J96.11 Chronic respiratory failure with hypoxia; I48.0 Paroxysmal atrial fibrillation; J44.9 Chronic obstructive pulmonary disease, unspecified; I48.2 Chronic atrial fibrillation; M41.26 Other idiopathic scoliosis, lumbar region; J98.6 Disorders of diaphragm; M47.817 Spondylosis without myelopathy or radiculopathy, lumbosacral region; M51.16 Intervertebral disc disorders with radiculopathy, lumbar region; D86.0 Sarcoidosis of lung; K21.9 Gastro-esophageal reflux disease without esophagitis; I10 Essential (primary) hypertension; E11.9 Type 2 diabetes mellitus without complications; E78.5 Hyperlipidemia, unspecified; E03.9 Hypothyroidism, unspecified; M79.7 Fibromyalgia; G47.00 Insomnia, unspecified; F32.9 Major depressive disorder, single episode, unspecified; E55.9 Vitamin D deficiency, unspecified; Z79.01 Long term (current) use of anticoagulants; Z79.1 Long term (current) use of non-steroidal anti-inflammatories (NSAID); Z79.890 Hormone replacement therapy; Z79.4 Long term (current) use of insulin; Z79.51 Long term (current) use of inhaled steroids; Z79.899 Other long term (current) drug therapy; Z90.710 Acquired absence of both cervix and uterus; Z90.49 Acquired absence of other specified parts of digestive tract; Z96.693 Finger-joint replacement, bilateral; Z96.653 Presence of artificial knee joint, bilateral; Z87.81 Personal history of (healed) traumatic fracture; Z86.19 Personal history of other infectious and parasitic diseases; Z86.718 Personal history of other venous thrombosis and embolism; Z98.890 Other specified postprocedural states; Z91.048 Other nonmedicinal substance allergy status; Z88.6 Allergy status to analgesic agent; Z88.1 Allergy status to other antibiotic agents; Z88.5 Allergy status to narcotic agent; Z82.49 Family history of ischemic heart disease and other diseases of the circulatory system; Z83.2 Family history of diseases of the blood and blood-forming organs and certain disorders involving the immune mechanism
CPT/HCPCS: 71046; 72100; 80048; 81003; 83036; 85025; 85610; 94640; 94760

== ENCOUNTER → 2018-12-21 | Outpatient (CLI) | payer MEDICARE ==
[2018-12-21 14:29] LABS: Basophils # (A) 0.1 k/uL (0-0.2); Basophils % (A) 1 %; Eosinophils # (A) 0.3 k/uL (0-0.7); Eosinophils % (A) 3 %; HCT 40.3 % (34.0-46.0); Lymphocytes # (A) 2.5 k/uL (1.0-4.8); Lymphocytes % (A) 27 %; MCH 29.6 pg (25.0-35.0); MCHC 32.3 g/dL (31.0-37.0); MCV 91.8 fL (80.0-100.0); Mean Platelet Volume 6.7; Monocytes # (A) 0.5 k/uL (0-1.0); Monocytes % (A) 5 %; Neutrophils # (A) 5.8 k/uL (1.3-7.7); Neutrophils % (A) 62 %; Platelet Count 271 k/uL (150-450); RBC 4.39 m/uL (3.80-5.40); RDW 13.4 % (11.5-15.5); WBC 9.3 k/uL (3.8-10.6)
[2018-12-21 14:34] LABS: INR 1.1 (<1.2); Partial Thromboplastin Time 26.1 sec (22.0-30.0); Prothrombin Time 11.7 sec (9.0-12.0)
[2018-12-21 14:49] LABS: African American GFR (CKD) >90 (>60 ml/min/1.73 sqM); Anion Gap 6 mmol/L; Blood Urea Nitrogen 22 mg/dL (7-17); Calcium 9.5 mg/dL (8.4-10.2); Carbon Dioxide 31 mmol/L (22-30); Chloride 103 mmol/L (98-107); Glucose 174 mg/dL (74-99); Potassium 4.4 mmol/L (3.5-5.1); Sodium 140 mmol/L (137-145)
== END | disposition home or self-care (01) ==
LOC: LABPAT 13:33
PROVIDERS: ATTEND Orthopaedic Surgery Orthopaedic Surgery of the Spine
DX: Z01.812 Encounter for preprocedural laboratory examination (principal); M48.061 Spinal stenosis, lumbar region without neurogenic claudication; Z79.01 Long term (current) use of anticoagulants
CPT/HCPCS: 36415; 80048; 85025; 85610; 85730

== ENCOUNTER → 2023-03-09 | Outpatient (CLI) | payer MEDICARE ==
--- NOTE | 2023-03-09 16:37 | FL ---
Fluoroscopy for sniff test INDICATION: Short of breath FINDINGS: Fluoroscopy time: 26 seconds. Total dose area product (DAP) in uGy*m?, mGy*cm? (or similar): 168.79 Images obtained: 1. There is mild elevation of the left diaphragm. With quiet breathing there is normal motion of the anay phragms. With quick sniffing no paradoxical motion is evident. Excursion of the diaphragms is somewha t limited. IMPRESSION: 1. No paradoxical motion to suggest paralysis. 2. Mild diminished excursion of the diaphragms with breathing.
== END | disposition home or self-care (01) ==
LOC: RADUSWWP 10:42
PROVIDERS: ATTEND Internal Medicine Clinical Cardiac Electrophysiology
DX: J98.6 Disorders of diaphragm (principal)
CPT/HCPCS: 76000

== ENCOUNTER → 2023-07-14 | Outpatient (CLI) | payer MEDICARE ==
[2023-07-14 08:01] LABS: African American GFR (CKD) 76 (>60 ml/min/1.73 sqM); Blood Urea Nitrogen 24 mg/dL (7-17); Non-African American GFR(CKD) 66 (>60 ml/min/1.73 sqM)
--- NOTE | 2023-07-20 08:31 | CT ---
EXAMINATION TYPE: CT chest w con CT DLP: 500.20 mGycm, Automated exposure control for dose reduction was used. DATE OF EXAM: 07/14/2023 8:50 AM COMPARISON: Chest x-ray 06/26/2023, remote CT chest angiogram for PE 09/07/2018 . 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 Sagittal and coronal reformats were created for review. Contrast used:100ml mL of Isovue 300 with IV Contrast (None if empty) Oral contrast used: (None if empty) FINDINGS: LUNGS/ PLEURA: There is significant elevation of the diaphragm bilaterally, likely related to eventra tion. There is immediately adjacent compressive atelectasis, as well as bandlike opacities in the rig ht middle and lower lobes, and more linear opacities in the left upper and lower lobes, compatible wi th atelectasis. Aerated lungs show no discrete parenchymal changes to suggest sarcoidosis. No consoli dation, sizable nodule, or mass. No pleural effusion or pneumothorax. AIRWAY: Central airways are patent. LOWER NECK: No significant findings. Thyroid is grossly unremarkable, except for the right lobe exten ds fairly deeply posteriorly, which may be morphology of the gland versus an exophytic nodule. MEDIASTINUM: Single mildly enlarged node is seen in the left subcarinal region, nestled in the crux o f the pulmonary artery bifurcation with a short axis of 1.4 cm; this is stable from remote prior 2019 . Adjacent nonenlarged node. No additional enlarged nodes by size criteria in the mediastinum or cleve . Vascular shadows cause a mildly prominent appearance of the cleve radiographically. HEART: Normal heart size. Moderate coronary artery calcification and/or stents, mostly on the left. N o appreciable pericardial effusion. VASCULATURE: Moderate atherosclerotic calcifications of the aorta and branches, mostly along the arc h. Mild stenosis of the proximal left subclavian artery. Ascending aorta is fusiform in shape with ma ximum diameter 3.8 CM, descending is 2.8 CM. Aorta is considered mildly ectatic in its ascending por tion. No evidence of dissection. Pulmonary trunk measures 3.4 CM. The pulmonary trunk is enlarged (>3cm), this can be seen with pulmon kapil hypertension Grossly preserved enhancement of the pulmonary arteries, in the limits of non-CTA ex am. SOFT TISSUES/LYMPH NODES: Unremarkable chest soft tissues. No enlarged axillary nodes. UPPER ABDOMEN: No significant findings. Cholecystectomy clips. Mild bilateral perinephric stranding, likely chronic without urinary symptoms of infection. Scattered radiodense material within the colon. MUSCULOSKELETAL: No acute osseous abnormalities. Mild to moderate disc degeneration changes are prese nt throughout the thoracolumbar spine. Partially imaged kyphoplasty cement within a mildly compressed L1 vertebral body. Bones overall appear mildly demineralized. No evidence of destructive lesion. IMPRESSION: 1. No specific findings to suggest sequela of sarcoidosis. 2. Elevated diaphragm bilaterally, likely related to eventration. 3. Areas of atelectasis bilaterally, related to #2. 4. Moderate coronary arterial calcifications. 5. Mild ectasia ascending aorta, 3.8 cm. 6. Enlarged pulmonary trunk, can be seen with pulmonary hypertension. 7. No acute chest process.
== END | disposition home or self-care (01) ==
LOC: RADCTMAIN 07:10
PROVIDERS: ATTEND Internal Medicine Critical Care Medicine
DX: D86.9 Sarcoidosis, unspecified (principal); Q79.1 Other congenital malformations of diaphragm; J98.11 Atelectasis; I77.811 Abdominal aortic ectasia; I25.10 Atherosclerotic heart disease of native coronary artery without angina pectoris
CPT/HCPCS: 82565; 84520; 71260; 36415; Q9967

== ENCOUNTER 2023-08-10 19:45 | Outpatient (CLI) | payer MEDICARE ==
--- NOTE | 2023-08-14 13:33 | P.PCN ---
Date of Procedure: 08/10/23 Operative Findings: polysomnography report Date of service is 08/10/2023 Pertinent history 74-year-old female patient, history of sarcoidosis, moderate persistent bronchial asthma, restrictive lung disease who suffers from exertional dyspnea and difficulties with breathing while laying down flat. Based on that, the patient was referred for a screening polysomnography. She has chronic atrial fibrillation the patient is also obese Pertinent physical findings Height is 5 feet and 4 inches, weight is 213 pounds with a body mass index of 36.6 Technical description The patient was studied using a standard complex polysomnography protocol that included recording of the 2 EKG, Central, occipital and frontal EEG, right and left outer canthus EOG, submental EMG, right and left anterior tibialis EMG, respiratory airflow by thermocouple and or pressure/flow transducer, respiratory efforts by abdominal and thoracic PVDF belts, oxygen saturation by cable oximetry. Position by observation synchronized the PSG. Equipment used: [employer]. Sleep characteristics The total recording duration was 369.5 minutes. The total sleep time was 263.5 minutes. The wake after sleep onset time was 3.5 minutes. The overall sleep efficiency was 71.3%. Latency to sleep onset was 1 to 2 minutes. Latest REM sleep was 178.5 minutes. Sleep architecture was catheterized by 3.6% stage I, 78.4% stage II, 0% stage III and 21.3% REM sleep. The total arousal index was 6.4 Respiratory analysis This sleep study showed a total of 27 obstructive events of which 0 obstructive apneas, 0 were mixed apneas and 27 obstructive hypopneas. The resulting AHI was 5.7. No central apneas were noted. The disease was worse during REM sleep with an AHI of 19.3 during REM. Oxygenation analysis The patient's baseline pulse ox while awake was 93%. Lowest pulse ox was 74% and the patient spent approximately 70 minutes of the sleep time below pulse ox of 89%. The oxygen desaturation occurred more significantly during REM sleep Arousal events The patient had total of 28 arousals with an index of 6.4. Respiratory arousal index was 0.2. Periodic limb movement summary The patient had a total of 16 periodic limb movements with an index of 3.6. There were 6 periodic limb movement with arousals with an index of 1.4 Cardiac summary Average heart rate was 65 with a minimum heart rate of 62 and a maximal heart of 69 Assessment Mild obstructive sleep apnea, worse during REM sleep. The overall apnea-hypo pnea index was 5.7 worse during REM sleep with an AHI of 19 during REM. Mild nocturnal oxygen saturation with a minimum pulse ox of 74% during REM sleep. Diminished sleep efficiency due to a delayed sleep onset. Overall sleep efficiency was 71% Chronic dyspnea, class III with shortness of breath upon laying down flat. Restrictive lung disease with a low FVC and low total lung capacity Moderate persistent bronchial asthma Sarcoidosis Nocturnal dyspnea Chronic A-fib Obesity, body mass index of 36.6 Plan Will discuss findings with the patient. Obviously, the extent of sleep breathing disorder is mild and is essentially REM related. I advised losing weight or sleeping in a sideways body position with the head of the bed elevated around 20 degrees. I am also going to discuss with her the need for CPAP therapy and this is a option that we can treat the patient with if she is willing to undertake the treatment. Her disease is mild at this point.
== END 2023-08-11 05:30 | disposition home or self-care (01) ==
LOC: 3 N SLEEP 19:45
PROVIDERS: ATTEND Internal Medicine Critical Care Medicine
DX: G47.33 Obstructive sleep apnea (adult) (pediatric) (principal); R06.00 Dyspnea, unspecified; G47.52 REM sleep behavior disorder; J45.909 Unspecified asthma, uncomplicated; I48.20 Chronic atrial fibrillation, unspecified; D86.9 Sarcoidosis, unspecified; E66.9 Obesity, unspecified; Z68.36 Body mass index [BMI] 36.0-36.9, adult; Z88.1 Allergy status to other antibiotic agents; Z91.048 Other nonmedicinal substance allergy status; Z88.8 Allergy status to other drugs, medicaments and biological substances; Z88.2 Allergy status to sulfonamides
CPT/HCPCS: 95810

== ENCOUNTER → 2023-09-06 | Outpatient (CLI) | payer MEDICARE | END | disposition home or self-care (01) | LOC: LABWHC1 16:17 | PROVIDERS: ATTEND Internal Medicine Critical Care Medicine | DX: J98.4 Other disorders of lung (principal) | CPT/HCPCS: 36415; 86041 ==